=== PATIENT | male | born 1940 | race Caucasian/White ===

== ENCOUNTER 2016-12-25 10:56 | Inpatient (IN) | payer MEDICARE, OTHER ==
[2016-12-25] VITALS (9 sets, daily range): BP systolic 94–114; BP diastolic 53–65; PULSE 52–59; RESP 15–23; TEMP 97.4–98; O2SAT 93–98
[~2016-12-25] VITALS: Ht 185.4 cm; Wt 101.8 kg
[2016-12-25] MEDS ORDERED: ceFAZolin 2 GM PREMIX 50 ML ONE (11:06)
[2016-12-25 11:18] LABS: I-STAT POTASSIUM 4.6 MMOL/L (3.5-4.9)
[2016-12-25 11:20] LABS: AUTOMATED NEUTROPHIL # 5.1 TH/MM3 (1.8-7.7); BASOPHIL # 0.1 TH/MM3 (0-0.2); BASOPHIL % 0.8 % (0.0-2.0); EOSINOPHIL # 0.2 TH/MM3 (0-0.4); EOSINOPHIL % 2.7 % (0.0-4.0); HEMATOCRIT 44.8 % (39.0-51.0); HEMO FLAGS DIFF FINAL; LYMPH % 24.2 % (9.0-44.0); LYMPHOCYTE # 1.9 TH/MM3 (1.0-4.8); MEAN CELL VOLUME 89.5 FL (80.0-100.0); MEAN CORPUSCULAR HEMOGLOBIN 29.6 PG (27.0-34.0); MONO % 6.8 % (0.0-8.0); NEUT % 65.5 % (16.0-70.0); PLATELET COUNT 235 TH/MM3 (150-450); RED CELL DISTRIBUTION WIDTH 13.8 % (11.6-17.2); WHITE BLOOD COUNT 7.8 TH/MM3 (4.0-11.0)
[2016-12-25] MEDS ORDERED: IOHEXOL 350 MG/ML 10 ML VIAL (for RAD DIAG) IVCONTRAST ONE (11:25)
[2016-12-25 11:28] LABS: APTT (PATIENT) 22.6 SEC (24.3-30.1); PROTHROMBIN TIME - PATIENT 10.7 SEC (9.8-11.6)
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
[2016-12-25] MEDS ORDERED: CHLORHEXIDINE GLUCONATE 2 % 1 PACK (2 CLOTHS) TOP PRN (11:45)
[2016-12-25] MEDS ORDERED: HYDROmorphone HCL PF 1 MG/ML VIAL IV PUSH PRN (11:45)
[2016-12-25] MEDS ORDERED: MISCELLANEOUS NURSING INFORMATION XX SCH (11:45)
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
[2016-12-25] MEDS: RESP: ALBUTEROL 2.5 MG/IPRATROPIUM 0.5 MG NEB (SCH) INH ×4 (12:00→23:35)
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
[2016-12-25] MEDS: SODIUM CHLOR 0.9% 1000 ML INJ 1,000 ML IV SCH ×2 (12:32→21:43)
[2016-12-25] MEDS: ACETAMINOPHEN 1000 MG/100 ML VIAL IV SCH ×2 (12:32→18:22)
[2016-12-25] MEDS: METHOCARBAMOL 500 MG TAB PO SCH ×2 (12:32→20:50)
[2016-12-25] MEDS: GABAPENTIN 100 MG CAP PO SCH ×2 (12:32→18:22)
[2016-12-25] MEDS: LIDOCAINE HCL 5% PATCH T-DERMAL SCH (12:32)
[2016-12-25] MEDS: FAMOTIDINE 20 MG/2 ML VIAL IV PUSH SCH ×2 (12:32→20:49)
[2016-12-25] MEDS: HYDROmorphone HCL PF 1 MG/ML VIAL IV PUSH PRN ×2 (12:32→18:22)
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
[2016-12-25 17:16] LABS: BACTERIA, URINE OCC /hpf; BLOOD, URINE LARGE (NEG); COMMENT (UR) CATH-CULTURE IND; CULTURE IF INDICATED CATH CULTURE IND; GLUCOSE,URINE NEG (NEG); KETONE, URINE NEG (NEG); NITRITE,URINE NEG (NEG); SQUAMOUS EPITHELIAL CELL URINE <1 /hpf (0-5); URINE COLOR YELLOW (YELLW/STRAW)
[2016-12-25 17:34] LABS: BICARBONATE 24.7 MEQ/L (21.0-32.0); POTASSIUM 4.6 MEQ/L (3.5-5.1)
[2016-12-25] MEDS: DOCUSATE SODIUM 50 MG/SENNA 8.6 MG TAB PO SCH (20:50)
[2016-12-25] MEDS: REMOVE OLD LIDOCAINE PATCH T-DERMAL SCH (21:00)
[2016-12-25] MEDS: MAGNESIUM HYDROXIDE SUSP 30 ML CUP PO SCH (21:03)
[2016-12-26] VITALS (28 sets, daily range): BP systolic 88–178; BP diastolic 51–74; PULSE 52–86; RESP 17–26; TEMP 97.7–98.9; O2SAT 18–100
[2016-12-26 00:33] LABS: HEMATOCRIT 38.4 % (39.0-51.0); REVIEW FLAG FINAL
[2016-12-26] MEDS: ACETAMINOPHEN 1000 MG/100 ML VIAL IV SCH ×2 (00:55→05:18)
[2016-12-26] MEDS: CHLORHEXIDINE GLUCONATE 2 % 1 PACK (2 CLOTHS) TOP SCH (00:55)
[2016-12-26] MEDS: RESP: ALBUTEROL 2.5 MG/IPRATROPIUM 0.5 MG NEB (SCH) INH ×6 (03:35→23:29)
[2016-12-26 03:48] LABS: AUTOMATED NEUTROPHIL # 6.7 TH/MM3 (1.8-7.7); BASOPHIL % 0.4 % (0.0-2.0); EOSINOPHIL % 0.3 % (0.0-4.0); HEMATOCRIT 35.5 % (39.0-51.0); HEMO FLAGS DIFF FINAL; LYMPH % 16.3 % (9.0-44.0); LYMPHOCYTE # 1.5 TH/MM3 (1.0-4.8); MEAN CELL VOLUME 89.1 FL (80.0-100.0); MEAN CORPUSCULAR HEMOGLOBIN 29.8 PG (27.0-34.0); MEAN CORPUSCULAR HGB CONC 33.5 % (32.0-36.0); MONO % 10.7 % (0.0-8.0); NEUT % 72.3 % (16.0-70.0); PLATELET COUNT 180 TH/MM3 (150-450); RED BLOOD COUNT 3.98 MIL/MM3 (4.50-5.90); RED CELL DISTRIBUTION WIDTH 13.9 % (11.6-17.2); WHITE BLOOD COUNT 9.3 TH/MM3 (4.0-11.0)
[2016-12-26 03:58] LABS: PROTHROMBIN TIME - PATIENT 11.1 SEC (9.8-11.6)
[2016-12-26 04:28] LABS: BICARBONATE 26.5 MEQ/L (21.0-32.0); POTASSIUM 4.4 MEQ/L (3.5-5.1)
[2016-12-26] MEDS: METHOCARBAMOL 500 MG TAB PO SCH ×3 (05:18→20:31)
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
[2016-12-26] MEDS: SODIUM CHLOR 0.9% 1000 ML INJ 1,000 ML IV SCH ×2 (07:55→16:55)
[2016-12-26] MEDS: LACTULOSE SYRUP 20 GM/30 ML CUP PO SCH (09:00)
[2016-12-26] MEDS ORDERED: SODIUM CHLORID 0.9% 500 ML INJ 500 ML IV ONE (09:45)
[2016-12-26] MEDS ORDERED: INFLUENZA VIRUS VACCINE (QUADRIVALENT) 0.5 ML SYR IM ONE (10:00)
[2016-12-26] MEDS ORDERED: SODIUM CHLOR 0.9% 1000 ML INJ 1,000 ML IV ONE ×2 (10:00→11:15)
[2016-12-26] MEDS: LIDOCAINE HCL 5% PATCH T-DERMAL SCH (10:05)
[2016-12-26] MEDS: ONDANSETRON HCL 4 MG/2 ML VIAL IV PUSH PRN (10:09)
[2016-12-26] MEDS: FAMOTIDINE 20 MG/2 ML VIAL IV PUSH SCH ×2 (10:09→20:32)
[2016-12-26] MEDS: GABAPENTIN 100 MG CAP PO SCH ×3 (10:10→17:32)
[2016-12-26] MEDS: DOCUSATE SODIUM 50 MG/SENNA 8.6 MG TAB PO SCH ×2 (10:10→20:31)
--- NOTE | 2016-12-26 10:17 | EKG ---
Date Performed: 12/26/2016 Time Performed: 03:30:28 PTAGE: 76 years EKG: Sinus bradycardia with 1st degree A-V block Inferior T wave changes are nonspecific Abnorma l ECG NO PREVIOUS TRACING DOCTOR: Brannon Watson Interpretating Date/Time 12/26/2016 10:12:44
--- NOTE | 2016-12-26 10:20 | MR ---
cc: BARRIE TOVAR MD DATE 12/25/2016 PREOPERATIVE DIAGNOSIS Laceration left hand with laceration of the extensor mechanism little finger MP joint. POSTOPERATIVE DIAGNOSIS Laceration left hand with laceration extensor mechanism MP joint little finger. PROCEDURE Exploration, wash and repair of the extensor mechanism MP joint and repair of laceration left hand. SURGEON Dr. Tovar ANESTHESIA Local ESTIMATED BLOOD LOSS Minimal This was a bedside procedure. No tourniquet was used. PROCEDURE After explaining the risks and benefits of the procedure and obtaining consent, the left hand was thoroughly prepped and draped. Skin flaps were elevated and thorough wash was given using normal saline. The foreign body within the region was removed. The patient had a laceration between the extensor digitorum communis and extensor digiti minimi over the MP joint with no evidence of exposed MP joint. There was evidence of subluxation of the EDC tendon to the ulnar groove. A thorough wash was given. The extensor mechanism was approximated between the EDC and EDM tendon with multiple Ethibond stitches. Skin flaps were then approximated using 5-0 nylon in a horizontal mattress interrupted fashion. Xeroform and bacitracin dressing applied. A bulky hand dressing was applied which was held in place by Wilfrid. The patient tolerated the procedure well. We will keep the part elevated. We continue the antibiotics and hand surgery will follow up. Barrie Tovar MD SE/BJORN /10:34 PM /10:05 AM SHYAM
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
[2016-12-26 11:03] LABS: HEMATOCRIT 27.9 % (39.0-51.0); REVIEW FLAG FINAL
[2016-12-26] MEDS ORDERED: SODIUM CHLOR 0.9% 250 ML INJ 250 ML IV ONE (11:15)
[2016-12-26] MEDS ORDERED: FUROSEMIDE 20 MG/2 ML VIAL IV PUSH ONE (12:00)
[2016-12-26] MEDS ORDERED: PROPOFOL 200 MG/20 ML AMP IV ONE (12:00)
[2016-12-26] MEDS ORDERED: PHENYLEPH/NS 1000 MCG/10 ML SYR IV ONE (12:00)
[2016-12-26] MEDS ORDERED: ROCURONIUM INJ 50 MG/5 ML SYRINGE IV PUSH ONE (12:00)
[2016-12-26] MEDS ORDERED: VECURONIUM BROMIDE 20 MG VIAL IV ONE (12:00)
[2016-12-26] MEDS ORDERED: LACTATED RINGER'S 1000 ML INJ 4,000 ML IV ONE (12:00)
[2016-12-26] MEDS ORDERED: NORMOSOL R INJ 2,000 ML IV ONE (12:00)
[2016-12-26] MEDS ORDERED: LIDOCAINE HCL 1% PF 5 ML AMPULE OTHER ONE (12:00)
[2016-12-26] MEDS ORDERED: ePHEDrine/NS 25 MG/5 ML SYR IV ONE (12:00)
[2016-12-26] MEDS ORDERED: HEPARIN - 10,000 UNITS/ML IV ADDITIVE OTHER ONE (12:00)
[2016-12-26] MEDS ORDERED: MIDAZOLAM HCL 2 MG/2 ML VIAL IV ONE (12:00)
[2016-12-26] MEDS ORDERED: ceFAZolin 2 GM PREMIX 50 ML ONE (13:26)
[2016-12-26 14:15] LABS: BLOOD GAS BASE EXCESS -6.4 mmol/L (-2-2); BLOOD GAS CARBOXYHEMOGLOBIN 1.7 % (0-4); BLOOD GAS HCO3 20 mmol/L (22-26); BLOOD GAS METHEMOGLOBIN 1.2 % (0-2); BLOOD GAS O2 HGB SATURATION 96 % (90-100); BLOOD GAS OXYGEN CONTENT 14.8 Vol % (12.0-20.0); BLOOD GAS PCO2 45 mmHg (38-42); BLOOD GAS PO2 167 mmHg (61-120); BLOOD GAS TOTAL HGB 10.7 G/DL (12.0-16.0); CRITICAL VALUE YES; TEMP CORR TO 98.6
[2016-12-26 14:16] LABS: OXYGEN DEVICE OR VENT; STAT YES
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
[2016-12-26] MEDS ORDERED: fentaNYL DRIP 250 ML IV PRN (16:30)
[2016-12-26] MEDS ORDERED: PROPOFOL 1000 MG/100 ML INJ 100 ML IV PRN (16:30)
--- NOTE | 2016-12-26 16:46 | RADRPT ---
EXAM DATE/TIME: 12/26/2016 16:19 [facility] COMPARISON: ABDOMEN SINGLE VIEW, December 26, 2016, 15:28. INDICATIONS : Shortness of breath. MEDICAL HISTORY : None. SURGICAL HISTORY : None. ENCOUNTER: Subsequent ACUITY: 1 day PAIN SCORE: Non-responsive. LOCATION: chest FINDINGS: The heart is enlarged. There is minimal left basilar effusion. There is subcutaneous emphysema along the left chest wall. No pneumothorax is evident. The ET tube is in satisfactory position. There are chronic interstitial changes of the pulmonary parenchyma. The bony structures demonstrate previous plating of the right clavicle. CONCLUSION: 1. ET tube in satisfactory position. 2. The venous emphysema along the left chest wall. 3. Cardiomegaly and chronic appearing interstitial changes Eladio Allen MD on December 26, 2016 at 16:44 Board Certified Radiologist. This report was verified electronically.
[2016-12-26 17:02] LABS: BLOOD GAS BASE EXCESS -2.4 mmol/L (-2-2); BLOOD GAS CARBOXYHEMOGLOBIN 1.4 % (0-4); BLOOD GAS HCO3 24 mmol/L (22-26); BLOOD GAS O2 HGB SATURATION 97 % (90-100); BLOOD GAS OXYGEN CONTENT 14.7 Vol % (12.0-20.0); BLOOD GAS PCO2 55 mmHg (38-42); BLOOD GAS PO2 256 mmHg (61-120); BLOOD GAS TOTAL HGB 10.3 G/DL (12.0-16.0); TEMP CORR TO 98.6
[2016-12-26 17:03] LABS: CRITICAL VALUE YES; DRAW SITE ALINE; FIO2 90 %; OXYGEN DEVICE VENT; STAT YES
[2016-12-26] MEDS ORDERED: POTASSIUM CHLOR 20 MEQ PREMIX 100 ML IV PRN ×2 (17:15)
[2016-12-26] MEDS ORDERED: POTASSIUM CHLOR 40 MEQ PREMIX 100 ML IV PRN (17:15)
[2016-12-26] MEDS ORDERED: MAGNESIUM SULFATE INJ 4 GM in SODIUM CHLORIDE 0.9% INJ 92 ML IV PRN (17:15)
[2016-12-26] MEDS ORDERED: MAGNESIUM SULFATE INJ 2 GM in SODIUM CHLORIDE 0.9% INJ 96 ML IV PRN (17:15)
[2016-12-26] MEDS ORDERED: MAGNESIUM OXIDE 400 MG TAB PO PRN (17:15)
[2016-12-26] MEDS ORDERED: POTASSIUM PHOSPHATE MONOBASIC 500 MG TAB PO PRN (17:15)
[2016-12-26] MEDS ORDERED: POTASSIUM PHOSPHATE INJ 30 MMOL in SODIUM CHLOR 0.9% 250 ML INJ 250 ML IV PRN (17:15)
[2016-12-26] MEDS ORDERED: POTASSIUM PHOSPHATE MONOBASIC 500 MG TAB PO/TUBE PRN (17:15)
[2016-12-26] MEDS ORDERED: POTASSIUM CHLORIDE 25 MEQ EFFERVESCENT TAB PO PRN (17:15)
[2016-12-26] MEDS ORDERED: SODIUM PHOSPHATE INJ 30 MMOL in SODIUM CHLOR 0.9% 250 ML INJ 240 ML IV PRN (17:15)
[2016-12-26 18:01] LABS: AUTOMATED NEUTROPHIL # 4.8 TH/MM3 (1.8-7.7); BASOPHIL % 0.3 % (0.0-2.0); EOSINOPHIL % 0.2 % (0.0-4.0); HEMATOCRIT 30.6 % (39.0-51.0); HEMO FLAGS DIFF FINAL; LYMPH % 17.7 % (9.0-44.0); LYMPHOCYTE # 1.2 TH/MM3 (1.0-4.8); MEAN CELL VOLUME 87.9 FL (80.0-100.0); MEAN CORPUSCULAR HEMOGLOBIN 30.1 PG (27.0-34.0); MEAN CORPUSCULAR HGB CONC 34.2 % (32.0-36.0); MONO % 9.9 % (0.0-8.0); NEUT % 71.9 % (16.0-70.0); PLATELET COUNT 159 TH/MM3 (150-450); RED BLOOD COUNT 3.48 MIL/MM3 (4.50-5.90); RED CELL DISTRIBUTION WIDTH 14.3 % (11.6-17.2); WHITE BLOOD COUNT 6.6 TH/MM3 (4.0-11.0)
[2016-12-26 18:24] LABS: BICARBONATE 24.4 MEQ/L (21.0-32.0); POTASSIUM 4.5 MEQ/L (3.5-5.1)
[2016-12-26 18:47] LABS: CALCIUM-PROTEIN CORRECTED 7.8 MG/DL (8.5-10.1)
[2016-12-26 18:55] LABS: BLOOD GAS BASE EXCESS -2.9 mmol/L (-2-2); BLOOD GAS CARBOXYHEMOGLOBIN 1.5 % (0-4); BLOOD GAS HCO3 22 mmol/L (22-26); BLOOD GAS METHEMOGLOBIN 1.1 % (0-2); BLOOD GAS O2 HGB SATURATION 94 % (90-100); BLOOD GAS OXYGEN CONTENT 14.5 Vol % (12.0-20.0); BLOOD GAS PCO2 44 mmHg (38-42); BLOOD GAS PO2 90 mmHg (61-120); BLOOD GAS TOTAL HGB 10.9 G/DL (12.0-16.0); CRITICAL VALUE NO; OXYGEN DEVICE VENT; TEMP CORR TO 98.6
[2016-12-26 18:56] LABS: DRAW SITE ALINE; FIO2 50 %; STAT NO
--- NOTE | 2016-12-26 19:04 | PD.OP ---
Operative Report Splenic injury,hypotension Postoperative Diagnosis: Splenic injury,hypotension Procedure: Insertion of left femoral CVP line Anesthesia: none Surgeon: Danielle Muñiz Business Reporter(s): none Operation and Findings: 76 y.o patient with splenic injury,patient became hypotensive,he has poor access -proceeded with insertion of a left femoral TLC. Patient's left groin area was sterilely prepped and draped.Using the femoral artery as landmark-the femoral vein was easily cannulated.A 20cm long TLC was inserted,there is good blood return and flush.All port were flushed with NS.Line secured to skin with 0 silk. Danielle Muñiz MD Dec 26, 2016 19:04
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
[2016-12-26] MEDS ORDERED: CHLORHEXIDINE 0.12% (ORAL KIT) 15 ML CUP MT SCH (20:00)
[2016-12-26] MEDS: REMOVE OLD LIDOCAINE PATCH T-DERMAL SCH (20:32)
[2016-12-26] MEDS: MAGNESIUM HYDROXIDE SUSP 30 ML CUP PO SCH (20:32)
[2016-12-26] MEDS: CHLORHEXIDINE 0.12% (ORAL KIT) 15 ML CUP MT SCH (20:33)
[2016-12-26] MEDS: PROPOFOL 1000 MG/100 ML INJ 100 ML IV PRN (21:17)
[2016-12-26] MEDS ORDERED: DO NOT ADM ANY ANTICOAGULANT DRUGS PRN (22:00)
[2016-12-27] VITALS (19 sets, daily range): BP systolic 103–139; BP diastolic 48–55; PULSE 50–97; RESP 18; TEMP 98.5–99.7; O2SAT 91–99
[2016-12-27 00:46] LABS: HEMATOCRIT 28.6 % (39.0-51.0); REVIEW FLAG FINAL
[2016-12-27] MEDS: PROPOFOL 1000 MG/100 ML INJ 100 ML IV PRN ×5 (01:56→20:44)
[2016-12-27] MEDS: CHLORHEXIDINE GLUCONATE 2 % 1 PACK (2 CLOTHS) TOP SCH (02:59)
[2016-12-27] MEDS: SODIUM CHLOR 0.9% 1000 ML INJ 1,000 ML IV SCH ×3 (03:43→18:29)
[2016-12-27] MEDS: RESP: ALBUTEROL 2.5 MG/IPRATROPIUM 0.5 MG NEB (SCH) INH ×6 (03:54→23:30)
[2016-12-27 05:10] LABS: AUTOMATED NEUTROPHIL # 6.8 TH/MM3 (1.8-7.7); BASOPHIL % 0.5 % (0.0-2.0); EOSINOPHIL # 0.2 TH/MM3 (0-0.4); HEMATOCRIT 27.7 % (39.0-51.0); HEMO FLAGS DIFF FINAL; LYMPH % 15.9 % (9.0-44.0); LYMPHOCYTE # 1.5 TH/MM3 (1.0-4.8); MEAN CELL VOLUME 86.4 FL (80.0-100.0); MEAN CORPUSCULAR HGB CONC 34.8 % (32.0-36.0); MONO % 10.9 % (0.0-8.0); NEUT % 70.7 % (16.0-70.0); PLATELET COUNT 161 TH/MM3 (150-450); RED BLOOD COUNT 3.21 MIL/MM3 (4.50-5.90); RED CELL DISTRIBUTION WIDTH 15.1 % (11.6-17.2); WHITE BLOOD COUNT 9.6 TH/MM3 (4.0-11.0)
[2016-12-27] MEDS: METHOCARBAMOL 500 MG TAB PO SCH ×3 (05:10→20:48)
--- NOTE | 2016-12-27 05:31 | RADRPT ---
EXAM DATE/TIME: 12/27/2016 03:36 [facility] COMPARISON: CHEST SINGLE AP, December 26, 2016, 16:19. INDICATIONS : Follow up rib fracture. MEDICAL HISTORY : Splenic, Rib Fx SURGICAL HISTORY : Shoulder surgery. ENCOUNTER: Subsequent ACUITY: 3 days PAIN SCORE: Non-responsive. LOCATION: Bilateral chest FINDINGS: A single view of the chest demonstrates endotracheal tube in good position. Nasogastric tube tip in s tomach with side-port in distal esophagus. Basilar airspace disease, left greater than right. Multipl e left-sided rib fractures with and subcutaneous tissues of the left chest wall. No significant pneum othorax identified. CONCLUSION: 1. Multiple left-sided rib fractures and air in the subcutaneous tissues. No definite pneumothorax. B asilar airspace disease, left greater than right. Noel Bethea MD on December 27, 2016 at 5:27 Board Certified Radiologist. This report was verified electronically.
[2016-12-27 06:07] LABS: CALCIUM-PROTEIN CORRECTED 7.8 MG/DL (8.5-10.1); POTASSIUM 4.4 MEQ/L (3.5-5.1); TOTAL BILIRUBIN ADULT 0.6 MG/DL (0.2-1.0)
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
[2016-12-27] MEDS: CHLORHEXIDINE 0.12% (ORAL KIT) 15 ML CUP MT SCH ×2 (08:00→21:09)
[2016-12-27] MEDS ORDERED: BUMETANIDE INJ 1 MG/4 ML VIAL IV PUSH ONE (08:00)
[2016-12-27] MEDS: DOCUSATE SODIUM 50 MG/SENNA 8.6 MG TAB PO SCH ×2 (08:36→20:48)
[2016-12-27] MEDS: LACTULOSE SYRUP 20 GM/30 ML CUP PO SCH (08:36)
[2016-12-27] MEDS: GABAPENTIN 100 MG CAP PO SCH ×3 (08:36→17:10)
[2016-12-27] MEDS: FAMOTIDINE 20 MG/2 ML VIAL IV PUSH SCH ×2 (08:36→20:48)
[2016-12-27] MEDS: LIDOCAINE HCL 5% PATCH T-DERMAL SCH (08:37)
[2016-12-27] MEDS ORDERED: ALBUMIN HUMAN 25% 25 GM/100 ML BAGP IV ONE (09:00)
[2016-12-27] MEDS ORDERED: TERBUTALINE INJ 1 MG/ML AMP SQ PRN (09:15)
[2016-12-27] MEDS: NOREPINEPHRINE-DEXTROSE DRIP 250 ML IV PRN (09:29)
[2016-12-27] MEDS: fentaNYL DRIP 250 ML IV PRN (09:45)
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
[2016-12-27 12:53] LABS: HEMATOCRIT 27.2 % (39.0-51.0); REVIEW FLAG FINAL
--- NOTE | 2016-12-27 13:07 | RADRPT ---
EXAM DATE/TIME: 12/27/2016 12:26 [facility] COMPARISON: CHEST SINGLE AP, December 27, 2016, 3:36. INDICATIONS : Left sided central line placement. MEDICAL HISTORY : Splenic, Rib Fx SURGICAL HISTORY : Shoulder surgery. ENCOUNTER: Subsequent ACUITY: 3 days PAIN SCORE: Non-responsive. LOCATION: Bilateral chest FINDINGS: Stable ETT. Interval slight retraction of the NGT with tip in the very proximal stomach. Interval temo cement of left subclavian central line with tip in the very proximal SVC. No significant pneumothorax . However, there is continued subcutaneous emphysema in the left subcutaneous soft tissues. Interval right upper lobe parenchymal opacity which may reflect atelectasis or pulmonary contusion. Cardiomedi astinal contours are stable. Multiple displaced left-sided rib fractures again noted. Remainder of th e exam is unchanged. CONCLUSION: 1. Slight interval retraction of nasogastric catheter with tip in the very proximal stomach. 2. Left subclavian central line catheter tip in the very proximal SVC with out significant pneumothor ax. However, there is stable left chest wall subcutaneous emphysema. 3. Interval right upper lobe parenchymal opacity which may reflect atelectasis or pulmonary contusion . Rohan Dorantes MD on December 27, 2016 at 13:03 Board Certified Radiologist. This report was verified electronically.
--- NOTE | 2016-12-27 16:39 | HHI.PR ---
Subjective Remarks left hand laceration repair follow up patient remains intubated and on pressors Objective Vital Signs Date Time Temp Pulse Resp B/P (MAP) Pulse Ox O2 Delivery O2 Flow Rate FiO2 12/27/16 16:00 99.0 50 18 123/48 (73) 96 12/27/16 16:00 50 12/27/16 16:00 82 12/27/16 15:11 84 138/54 12/27/16 14:45 85 120/52 12/27/16 14:21 84 100/39 12/27/16 14:00 87 12/27/16 12:05 93 60 12/27/16 12:00 60 12/27/16 12:00 99.0 94 18 103/52 (69) 96 12/27/16 12:00 94 12/27/16 11:15 113 80/53 12/27/16 11:00 85 97/45 12/27/16 10:00 78 12/27/16 09:41 74 97/41 12/27/16 09:29 86 92/42 12/27/16 08:30 90 60 12/27/16 08:04 91 50 12/27/16 08:00 99.7 93 18 105/53 (70) 99 12/27/16 08:00 92 12/27/16 08:00 60 12/27/16 07:00 93 Mechanical Ventilator 50 12/27/16 06:00 84 12/27/16 04:00 98.9 72 18 126/48 (74) 93 12/27/16 04:00 50 12/27/16 04:00 72 12/27/16 03:54 94 50 12/27/16 02:00 74 12/27/16 01:31 95 50 12/27/16 00:00 50 12/27/16 00:00 76 12/27/16 00:00 98.5 76 18 139/55 (83) 95 12/26/16 22:57 98.5 80 18 155/62 98 12/26/16 22:42 98.5 78 18 147/56 98 12/26/16 22:04 98.5 77 18 150/59 98 12/26/16 22:02 98 50 12/26/16 22:00 75 12/26/16 21:47 98.5 75 18 135/56 98 12/26/16 20:00 98.5 84 23 122/62 (82) 95 12/26/16 20:00 84 12/26/16 19:49 98 50 12/26/16 19:00 98 Mechanical Ventilator 50 12/26/16 19:00 98.2 86 18 178/74 98 12/26/16 18:49 97.9 84 18 154/68 98 12/26/16 18:28 97.7 82 18 153/62 100 12/26/16 18:09 97.8 81 18 131/57 95 12/26/16 18:00 83 12/26/16 17:38 97 50 I/O 12/26/16 12/26/16 12/26/16 12/27/16 12/27/16 12/27/16 07:00 15:00 23:00 07:00 15:00 23:00 Intake Total 1667 ml 4091 ml 3539 ml 2658 ml 1100 ml 100 ml Output Total 400 ml 2500 ml 320 ml 715 ml 75 ml Balance 1267 ml 4091 ml 1039 ml 2338 ml 385 ml 25 ml Intake Oral 480 ml 0 ml IV Total 1187 ml 2887 ml 150 ml 2188 ml 1100 ml 100 ml Packed Cells 1200 ml 400 ml FFP 329 ml 370 ml Platelets 242 ml Blood Product IV Normal Saline Flush 4 ml 18 ml 100 ml Other 2400 ml Output Urine Total 400 ml 850 ml 300 ml 715 ml 75 ml Gastric Drainage Total 0 ml 0 ml Drainage Total 50 ml 20 ml Estimated Blood Loss 1600 ml # Bowel Movements 0 0 0 examination of left hand: dressing in place laceration clean and dry with sutures in place minimal swelling noted no drainage Result Diagram: 12/27/16 1115 12/27/16 0450 Assessment and Plan Assessment and Plan 76 year old male s/p repair of laceration and extensor mechanism left little finger and hand Plan: dressing changed keep the part elevated hand surgery will follow Barrie Turpin MD Dec 27, 2016 16:39
[2016-12-27] MEDS: MAGNESIUM HYDROXIDE SUSP 30 ML CUP PO SCH (20:48)
[2016-12-27] MEDS: REMOVE OLD LIDOCAINE PATCH T-DERMAL SCH (20:48)
[2016-12-28] VITALS (20 sets, daily range): BP systolic 92–151; BP diastolic 38–56; PULSE 70–116; RESP 18–20; TEMP 98.2–102.8; O2SAT 89–99
[2016-12-28] MEDS: PROPOFOL 1000 MG/100 ML INJ 100 ML IV PRN ×5 (02:10→22:50)
[2016-12-28] MEDS: fentaNYL DRIP 250 ML IV PRN ×2 (02:31→22:03)
[2016-12-28] MEDS: NOREPINEPHRINE-DEXTROSE DRIP 250 ML IV PRN ×2 (03:35→22:00)
[2016-12-28] MEDS: CHLORHEXIDINE GLUCONATE 2 % 1 PACK (2 CLOTHS) TOP SCH (04:00)
[2016-12-28] MEDS: RESP: ALBUTEROL 2.5 MG/IPRATROPIUM 0.5 MG NEB (SCH) INH ×6 (04:06→23:18)
[2016-12-28 04:39] LABS: AUTOMATED NEUTROPHIL # 9.9 TH/MM3 (1.8-7.7); BASOPHIL # 0.1 TH/MM3 (0-0.2); BASOPHIL % 0.6 % (0.0-2.0); EOSINOPHIL # 0.2 TH/MM3 (0-0.4); EOSINOPHIL % 1.4 % (0.0-4.0); HEMATOCRIT 24.9 % (39.0-51.0); HEMO FLAGS DIFF FINAL; LYMPH % 8.6 % (9.0-44.0); LYMPHOCYTE # 1.1 TH/MM3 (1.0-4.8); MEAN CELL VOLUME 87.5 FL (80.0-100.0); MEAN CORPUSCULAR HEMOGLOBIN 30.1 PG (27.0-34.0); MEAN CORPUSCULAR HGB CONC 34.4 % (32.0-36.0); MONO % 9.1 % (0.0-8.0); NEUT % 80.3 % (16.0-70.0); PLATELET COUNT 169 TH/MM3 (150-450); RED BLOOD COUNT 2.85 MIL/MM3 (4.50-5.90); WHITE BLOOD COUNT 12.4 TH/MM3 (4.0-11.0)
[2016-12-28 05:02] LABS: BICARBONATE 26.3 MEQ/L (21.0-32.0); CALCIUM-PROTEIN CORRECTED 8.2 MG/DL (8.5-10.1); MAGNESIUM 2.4 MG/DL (1.5-2.5); POTASSIUM 4.2 MEQ/L (3.5-5.1); TOTAL BILIRUBIN ADULT 0.5 MG/DL (0.2-1.0)
[2016-12-28] MEDS: METHOCARBAMOL 500 MG TAB PO SCH ×3 (05:21→22:00)
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
[2016-12-28] MEDS ORDERED: BUMETANIDE INJ 1 MG/4 ML VIAL IV PUSH ONE (07:30)
[2016-12-28] MEDS ORDERED: ALBUMIN HUMAN 25% 25 GM/100 ML BAGP IV ONE (07:30)
[2016-12-28] MEDS: CHLORHEXIDINE 0.12% (ORAL KIT) 15 ML CUP MT SCH ×2 (08:00→20:21)
[2016-12-28] MEDS ORDERED: ROCURONIUM INJ 50 MG/5 ML VIAL ONE (08:24)
--- NOTE | 2016-12-28 09:00 | PD.PROCEDR ---
Procedure Note Procedure Indication: Inability to ventilate due to cuff damage Sedated with propofol and fentanyl infusions, neuromuscular paralysis with rocuronium INTUBATION: The patient was put in optimal position for the procedure. I attempted to exchange the tube over a bougie but was unable to pass the bougie, into the bronchial tree. Patient was extubated and reintubated with a 8.0 cuffed endotracheal tube. DL Mac $ blade Grade 2 view, single attempt Tube placement was confirmed by visualization of the tube and balloon passing through the cords, capnometry and subsequent chest x-ray. Breath sounds were equal and well aerated bilaterally postintubation. No breath sounds over stomach. Patient tolerated procedure well. Lester Arauz MD Dec 28, 2016 09:00
[2016-12-28] MEDS: FAMOTIDINE 20 MG/2 ML VIAL IV PUSH SCH ×2 (09:11→20:22)
[2016-12-28] MEDS: LACTULOSE SYRUP 20 GM/30 ML CUP PO SCH (09:11)
[2016-12-28] MEDS: DOCUSATE SODIUM 50 MG/SENNA 8.6 MG TAB PO SCH ×2 (09:11→20:22)
[2016-12-28] MEDS: GABAPENTIN 100 MG CAP PO SCH ×3 (09:11→17:12)
[2016-12-28] MEDS: LIDOCAINE HCL 5% PATCH T-DERMAL SCH (09:11)
[2016-12-28] MEDS ORDERED: ROCURONIUM INJ 50 MG/5 ML VIAL IV ONE (09:15)
[2016-12-28] MEDS ORDERED: hydrALAZINE HCL 20 MG/ML VIAL IV PUSH PRN (09:30)
--- NOTE | 2016-12-28 09:53 | RADRPT ---
EXAM DATE/TIME: 12/28/2016 09:18 [facility] COMPARISON: CHEST SINGLE AP, December 27, 2016, 12:26. CT THORAX W CONTRAST, December 25, 2016, 11:18. CHEST SINGLE AP, December 28, 2016, 3:21. INDICATIONS : ET tube exchange. MEDICAL HISTORY : Rib fractures. SURGICAL HISTORY : None. ENCOUNTER: Initial ACUITY: 1 day PAIN SCORE: Non-responsive. LOCATION: Bilateral chest FINDINGS: There is an endotracheal tube seen with the tip at the level of the clavicles. There is NG tube in ex tending beyond the imaged portion of the film. Surgical plate and screws traversing the right clavicl e. The surgical plate appears fractured but nondisplaced. There are left-sided rib fractures noted. N o visualized left-sided pneumothorax. There is stable left basilar airspace atelectasis. Hazy opacity identified within the lungs bilateral ly which is slightly progressed as compared to the prior exam. This may reflect pulmonary contusion g iven the history of trauma versus edema. CONCLUSION: Probably positioned endotracheal tube. Stable appearance of left-sided rib fractures. Increasing hazy opacity of the lungs bilaterally which is progressed as compared to the prior exam. This may reflect progressive pulmonary contusions given the history of trauma versus fluid or possible basilar atelec tasis. Ambreen Tamayo MD on December 28, 2016 at 9:47 Board Certified Radiologist. This report was verified electronically.
[2016-12-28] MEDS: METOPROLOL TARTRATE 5 MG/5 ML VIAL IV PUSH SCH ×3 (10:40→22:00)
[2016-12-28] MEDS ORDERED: FUROSEMIDE 40 MG/4 ML VIAL IV PUSH ONE (11:15)
[2016-12-28] MEDS: PIPERACIL-TAZO 4.5 GM PREMIX 100 ML IV SCH ×2 (11:24→17:13)
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
[2016-12-28] MEDS: ACETAMINOPHEN 325 MG TAB PO PRN (14:36)
[2016-12-28] MEDS: REMOVE OLD LIDOCAINE PATCH T-DERMAL SCH (20:22)
[2016-12-28] MEDS: MAGNESIUM HYDROXIDE SUSP 30 ML CUP PO SCH (20:22)
[2016-12-29] VITALS (17 sets, daily range): BP systolic 121–160; BP diastolic 44–56; PULSE 66–84; RESP 18; TEMP 98.7–100.1; O2SAT 96–100
[2016-12-29] MEDS: PIPERACIL-TAZO 4.5 GM PREMIX 100 ML IV SCH ×4 (00:32→17:07)
[2016-12-29] MEDS: RESP: ALBUTEROL 2.5 MG/IPRATROPIUM 0.5 MG NEB (SCH) INH ×2 (03:03→08:17)
[2016-12-29] MEDS: CHLORHEXIDINE GLUCONATE 2 % 1 PACK (2 CLOTHS) TOP SCH (03:45)
[2016-12-29] MEDS: METOPROLOL TARTRATE 5 MG/5 ML VIAL IV PUSH SCH ×4 (03:45→19:58)
[2016-12-29] MEDS: NOREPINEPHRINE-DEXTROSE DRIP 250 ML IV PRN ×2 (03:47→18:41)
[2016-12-29 04:28] LABS: AUTOMATED NEUTROPHIL # 8.7 TH/MM3 (1.8-7.7); BASOPHIL % 0.3 % (0.0-2.0); EOSINOPHIL # 0.6 TH/MM3 (0-0.4); EOSINOPHIL % 5.2 % (0.0-4.0); HEMATOCRIT 23.2 % (39.0-51.0); HEMO FLAGS DIFF FINAL; LYMPH % 10.3 % (9.0-44.0); LYMPHOCYTE # 1.2 TH/MM3 (1.0-4.8); MEAN CELL VOLUME 88.1 FL (80.0-100.0); MEAN CORPUSCULAR HEMOGLOBIN 29.8 PG (27.0-34.0); MEAN CORPUSCULAR HGB CONC 33.9 % (32.0-36.0); MONO % 8.9 % (0.0-8.0); NEUT % 75.3 % (16.0-70.0); PLATELET COUNT 204 TH/MM3 (150-450); RED BLOOD COUNT 2.64 MIL/MM3 (4.50-5.90); RED CELL DISTRIBUTION WIDTH 14.6 % (11.6-17.2); WHITE BLOOD COUNT 11.5 TH/MM3 (4.0-11.0)
[2016-12-29 04:29] LABS: ALT (GPT) 16 U/L (12-78); ANION GAP 6 MEQ/L (5-15); AST (GOT) 21 U/L (15-37); BICARBONATE 29.1 MEQ/L (21.0-32.0); BLOOD UREA NITROGEN 27 MG/DL (7-18); CHLORIDE 106 MEQ/L (98-107); GLOMERULAR FILTRATION RATE 59 ML/MIN (>89); POTASSIUM 3.8 MEQ/L (3.5-5.1); SODIUM (NA) 141 MEQ/L (136-145)
[2016-12-29 04:32] LABS: ALKALINE PHOSPHATASE 54 U/L (45-117); TOTAL BILIRUBIN ADULT 1.2 MG/DL (0.2-1.0)
[2016-12-29 05:32] LABS: BLOOD GAS BASE EXCESS 1.7 mmol/L (-2-2); BLOOD GAS CARBOXYHEMOGLOBIN 1.2 % (0-4); BLOOD GAS HCO3 26 mmol/L (22-26); BLOOD GAS METHEMOGLOBIN 0.7 % (0-2); BLOOD GAS O2 HGB SATURATION 96 % (90-100); BLOOD GAS OXYGEN CONTENT 11.3 Vol % (12.0-20.0); BLOOD GAS PCO2 41 mmHg (38-42); BLOOD GAS PO2 85 mmHG (61-120); BLOOD GAS TOTAL HGB 8.3 G/DL (12.0-16.0); CRITICAL VALUE NO; FIO2 70 %; OXYGEN DEVICE VENTILATOR; TEMP CORR TO 98.6; VENT SETTINGS PRVC18/650/1.0/+5
[2016-12-29 05:33] LABS: DRAW SITE ALINE; STAT NO; ULNAR PULSE PRESENT
[2016-12-29] MEDS: PROPOFOL 1000 MG/100 ML INJ 100 ML IV PRN ×4 (05:35→18:41)
[2016-12-29] MEDS: METHOCARBAMOL 500 MG TAB PO SCH ×4 (05:35→21:15)
--- NOTE | 2016-12-29 06:22 | RADRPT ---
EXAM DATE/TIME: 12/29/2016 04:51 [facility] COMPARISON: CHEST SINGLE AP, December 28, 2016, 9:18. INDICATIONS : Short of breath. MEDICAL HISTORY : Splenic, rib fractures. SURGICAL HISTORY : None. ENCOUNTER: Subsequent ACUITY: 4 - 6 days PAIN SCORE: 0/10 LOCATION: Bilateral chest FINDINGS: Mild bibasilar infiltrate again noted, not significantly changed. Small pleural effusion is seen on t he left, also stable. No pneumothorax radiograph heart size stable, within normal limits. Endotracheal tube tip is approximately 3.5 cm above the cade. There is a nasogastric tube coursing into the stomach. Left subclavian central venous catheter again seen, tip in the superior vena cava. Left rib fractures are again noted. CONCLUSION: No significant change. Davonte Grover MD on December 29, 2016 at 6:19 Board Certified Radiologist. This report was verified electronically.
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
[2016-12-29] MEDS: CHLORHEXIDINE 0.12% (ORAL KIT) 15 ML CUP MT SCH ×2 (08:25→20:07)
[2016-12-29] MEDS: DOCUSATE SODIUM 50 MG/SENNA 8.6 MG TAB PO SCH ×4 (09:00→21:15)
[2016-12-29] MEDS: GABAPENTIN 100 MG CAP PO SCH ×4 (09:00→17:03)
[2016-12-29] MEDS: LACTULOSE SYRUP 20 GM/30 ML CUP PO SCH (09:12)
[2016-12-29] MEDS: LIDOCAINE HCL 5% PATCH T-DERMAL SCH (09:12)
[2016-12-29] MEDS: FAMOTIDINE 20 MG/2 ML VIAL IV PUSH SCH ×2 (09:13→20:07)
[2016-12-29] MEDS: FUROSEMIDE 20 MG/2 ML VIAL IV PUSH SCH (09:13)
[2016-12-29] MEDS ORDERED: ALBUMIN HUMAN 25% 25 GM/100 ML BAGP IV ONE (09:30)
[2016-12-29] MEDS ORDERED: BUMETANIDE INJ 1 MG/4 ML VIAL IV PUSH ONE (09:30)
[2016-12-29] MEDS ORDERED: POTASSIUM CHLOR 20 MEQ PREMIX 100 ML IV ONE (09:30)
[2016-12-29] MEDS ORDERED: FUROSEMIDE 20 MG/2 ML VIAL IV PUSH ONE (09:45)
[2016-12-29] MEDS: fentaNYL DRIP 250 ML IV PRN (14:17)
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
[2016-12-29] MEDS: MAGNESIUM HYDROXIDE SUSP 30 ML CUP PO SCH ×2 (19:58→21:15)
[2016-12-29] MEDS: REMOVE OLD LIDOCAINE PATCH T-DERMAL SCH (21:00)
[2016-12-30] VITALS (20 sets, daily range): BP systolic 116–165; BP diastolic 44–74; PULSE 60–116; RESP 12–30; TEMP 98.5–100.9; O2SAT 93–100
[2016-12-30] MEDS: PIPERACIL-TAZO 4.5 GM PREMIX 100 ML IV SCH ×4 (00:11→17:16)
[2016-12-30] MEDS: METOPROLOL TARTRATE 5 MG/5 ML VIAL IV PUSH SCH ×5 (00:40→21:44)
[2016-12-30] MEDS: PROPOFOL 1000 MG/100 ML INJ 100 ML IV PRN ×5 (00:41→20:33)
[2016-12-30] MEDS: CHLORHEXIDINE GLUCONATE 2 % 1 PACK (2 CLOTHS) TOP SCH (00:41)
[2016-12-30] MEDS: fentaNYL DRIP 250 ML IV PRN ×2 (02:34→16:46)
[2016-12-30 03:43] LABS: BLOOD GAS BASE EXCESS 0.1 mmol/L (-2-2); BLOOD GAS CARBOXYHEMOGLOBIN 1.3 % (0-4); BLOOD GAS HCO3 24 mmol/L (22-26); BLOOD GAS O2 HGB SATURATION 96 % (90-100); BLOOD GAS PCO2 35 mmHg (38-42); BLOOD GAS PO2 105 mmHg (61-120); CRITICAL VALUE NO; OXYGEN DEVICE VENT; TEMP CORR TO 98.6
[2016-12-30 03:44] LABS: DRAW SITE ART LINE; FIO2 50 %; STAT NO; ULNAR PULSE PRESENT; VENT SETTINGS SEE COMMENTS
[2016-12-30 04:35] LABS: AUTOMATED NEUTROPHIL # 8.5 TH/MM3 (1.8-7.7); BASOPHIL # 0.1 TH/MM3 (0-0.2); BASOPHIL % 0.5 % (0.0-2.0); EOSINOPHIL # 0.8 TH/MM3 (0-0.4); EOSINOPHIL % 7.3 % (0.0-4.0); HEMATOCRIT 21.8 % (39.0-51.0); LYMPH % 7.8 % (9.0-44.0); LYMPHOCYTE # 0.9 TH/MM3 (1.0-4.8); MEAN CELL VOLUME 87.4 FL (80.0-100.0); MEAN CORPUSCULAR HEMOGLOBIN 29.2 PG (27.0-34.0); MEAN CORPUSCULAR HGB CONC 33.5 % (32.0-36.0); MONO % 10.8 % (0.0-8.0); NEUT % 73.6 % (16.0-70.0); PLATELET COUNT 243 TH/MM3 (150-450); RED BLOOD COUNT 2.49 MIL/MM3 (4.50-5.90); WHITE BLOOD COUNT 11.5 TH/MM3 (4.0-11.0)
[2016-12-30 04:37] LABS: HEMO FLAGS AUTO DIFF
[2016-12-30 04:54] LABS: ANION GAP 10 MEQ/L (5-15); AST (GOT) 17 U/L (15-37); BICARBONATE 26.7 MEQ/L (21.0-32.0); BLOOD UREA NITROGEN 23 MG/DL (7-18); CHLORIDE 104 MEQ/L (98-107); GLOMERULAR FILTRATION RATE 66 ML/MIN (>89); POTASSIUM 3.4 MEQ/L (3.5-5.1); SODIUM (NA) 141 MEQ/L (136-145)
[2016-12-30 04:57] LABS: ALKALINE PHOSPHATASE 48 U/L (45-117); ALT (GPT) 15 U/L (12-78)
--- NOTE | 2016-12-30 05:12 | RADRPT ---
EXAM DATE/TIME: 12/30/2016 03:30 [facility] COMPARISON: CHEST SINGLE AP, December 29, 2016, 4:51. INDICATIONS : Short of breath. MEDICAL HISTORY : Rib fractures. SURGICAL HISTORY : None. ENCOUNTER: Subsequent ACUITY: 4 - 6 days PAIN SCORE: Non-responsive. LOCATION: Bilateral chest FINDINGS: Basilar consolidation with pleural effusions again noted, moderate on the right and small on the left . No pneumothorax seen. Heart size stable, upper limits of normal. Endotracheal tube tip is approximately 3.5 cm above the cade. Nasogastric tube courses into the sto mach. There is a left subclavian central venous catheter with tip in the superior vena cava. CONCLUSION: No significant change. Davonte Grover MD on December 30, 2016 at 5:10 Board Certified Radiologist. This report was verified electronically.
[2016-12-30] MEDS: METHOCARBAMOL 500 MG TAB PO SCH ×3 (05:22→20:32)
[2016-12-30] MEDS: POTASSIUM CHLOR 40 MEQ PREMIX 100 ML IV PRN ×2 (05:25→21:25)
[2016-12-30 06:58] LABS: BANDS 15 % (0-6); CORRECTED NUCLEATED RBC 7 /100 WBC (0-0); EOSINOPHILS 8 % (0-4); NEUTROPHIL # MANUAL DIFF 9.3 TH/MM3 (1.8-7.7); POLYS (SEG NEUTROPHILS) 66 % (16-70); TOXIC GRANULATION 1+ (NORMAL); WBC DIFF SAMPLE 100
[2016-12-30 06:59] LABS: PLATELET ESTIMATE SMEAR NORMAL (NORMAL); PLATELET MORPHOLOGY ENLARGED (NORMAL); SCAN/DIFF FINAL DIFF MANUAL
[2016-12-30] MEDS: CHLORHEXIDINE 0.12% (ORAL KIT) 15 ML CUP MT SCH ×2 (08:30→20:31)
[2016-12-30] MEDS: FAMOTIDINE 20 MG/2 ML VIAL IV PUSH SCH ×2 (08:31→20:31)
[2016-12-30] MEDS: LIDOCAINE HCL 5% PATCH T-DERMAL SCH (08:31)
[2016-12-30] MEDS: FUROSEMIDE 20 MG/2 ML VIAL IV PUSH SCH (08:31)
[2016-12-30] MEDS: BISACODYL 10 MG SUPP RECTAL SCH (08:31)
[2016-12-30] MEDS: DOCUSATE SODIUM 50 MG/SENNA 8.6 MG TAB PO SCH ×2 (08:31→20:32)
[2016-12-30] MEDS: GABAPENTIN 100 MG CAP PO SCH ×3 (08:32→17:16)
[2016-12-30] MEDS ORDERED: FUROSEMIDE 40 MG/4 ML VIAL IV PUSH ONE (10:00)
[2016-12-30] MEDS: ENOXAPARIN SODIUM 40 MG/0.4 ML SYRINGE SQ SCH (10:25)
[2016-12-30] MEDS: QUEtiapine FUMARATE 25 MG TAB PO SCH ×2 (11:30→17:16)
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
[2016-12-30] MEDS: LISINOPRIL 10 MG TAB PO SCH ×2 (11:55→20:32)
[2016-12-30] MEDS: hydrALAZINE HCL 10 MG TAB PO SCH ×2 (12:00→17:16)
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
--- NOTE | 2016-12-30 18:16 | ECHRPT ---
Indication: CHEST PAIN CONCLUSIONS The left ventricular systolic function is normal with an estimated ejection fraction in the range of 55-60%. Mild concentric left ventricular hypertrophy. Left ventricular diastolic function parameters are normal. BP: 137 / 60 HR: 69 Rhythm: Sinus MEASUREMENTS (Male / Female) Normal Values Technical Quality:Technically difficult study 2D ECHO LV Diastolic Diameter PLAX 4.6 cm 4.2 - 5.9 / 3.9 - 5.3 cm LV Systolic Diameter PLAX 3.5 cm IVS Diastolic Thickness 1.1 cm 0.6 - 1.0 / 0.6 - 0.9 cm LVPW Diastolic Thickness 1.1 cm 0.6 - 1.0 / 0.6 - 0.9 cm LV Relative Wall Thickness 0.5 LVOT Diameter 2.6 cm Aortic Root Diameter 3.8 cm M-MODE AV Cusp Separation MM 1.9 cm DOPPLER AV Peak Velocity 160.0 cm/s AV Peak Gradient 10.2 mmHg AV Mean Gradient 5.0 mmHg AV Velocity Time Integral 23.3 cm LVOT Peak Velocity 132.0 cm/s LVOT Peak Gradient 7.0 mmHg LVOT Velocity Time Integral 21.5 cm LVOT Cardiac Index 3272.5 cm/minm AV Area Cont Eq vti 4.9 cm AV Area Cont Eq pk 4.4 cm Mitral E Point Velocity 104.0 cm/s Mitral A Point Velocity 140.0 cm/s Mitral E to A Ratio 0.7 LV E' Lateral Velocity 15.3 cm/s Mitral E to LV E' Lateral Ratio 6.8 LV E' Septal Velocity 7.8 cm/s Mitral E to LV E' Septal Ratio 13.3 TR Peak Velocity 182.0 cm/s TR Peak Gradient 13.2 mmHg FINDINGS LEFT VENTRICLE Normal left ventricular size. Mild concentric left ventricular hypertrophy. The left ventricular systolic function is normal with an estimated ejection fraction in the range of 55-60%. Left ventricular diastolic function parameters are normal. RIGHT VENTRICLE The right ventricular size is normal. The right ventricular systoilc function is normal. LEFT ATRIUM The left atrial size is normal. RIGHT ATRIUM The right atrial size is normal. ATRIAL SEPTUM The interatrial septum not well visualized. AORTA The aortic root and proximal ascending aorta are normal in size on limited imaging. MITRAL VALVE Structurally normal mitral valve. No mitral valve stenosis or regurgitation. AORTIC VALVE No aortic valve regurgitation. No aortic valve stenosis. TRICUSPID VALVE Structurally normal tricuspid valve. No tricuspid valve stenosis or regurgitation. PULMONARY VALVE The pulmonary valve is not well visualized. PERICARDIUM No pericardial effusion. Jack Barraza DO (Electronically Signed) Final Date:30 December 2016 18:15
[2016-12-30] MEDS: MAGNESIUM HYDROXIDE SUSP 30 ML CUP PO SCH (20:31)
[2016-12-30 20:50] LABS: HEMATOCRIT 26.1 % (39.0-51.0); REVIEW FLAG FINAL
[2016-12-30] MEDS: REMOVE OLD LIDOCAINE PATCH T-DERMAL SCH (21:00)
[2016-12-31] VITALS (18 sets, daily range): BP systolic 92–123; BP diastolic 50–58; PULSE 65–96; RESP 12–15; TEMP 98.5–100.4; O2SAT 93–100
[2016-12-31] MEDS: PIPERACIL-TAZO 4.5 GM PREMIX 100 ML IV SCH ×5 (00:33→23:55)
[2016-12-31] MEDS: QUEtiapine FUMARATE 25 MG TAB PO SCH ×5 (00:33→23:55)
[2016-12-31] MEDS: PROPOFOL 1000 MG/100 ML INJ 100 ML IV PRN ×2 (01:31→08:14)
[2016-12-31] MEDS: CHLORHEXIDINE GLUCONATE 2 % 1 PACK (2 CLOTHS) TOP SCH (04:00)
[2016-12-31] MEDS: METOPROLOL TARTRATE 5 MG/5 ML VIAL IV PUSH SCH ×4 (04:00→22:31)
[2016-12-31 04:04] LABS: AUTOMATED NEUTROPHIL # 7.6 TH/MM3 (1.8-7.7); BASOPHIL % 0.5 % (0.0-2.0); EOSINOPHIL # 0.9 TH/MM3 (0-0.4); EOSINOPHIL % 8.5 % (0.0-4.0); HEMATOCRIT 24.6 % (39.0-51.0); LYMPH % 8.9 % (9.0-44.0); LYMPHOCYTE # 0.9 TH/MM3 (1.0-4.8); MEAN CELL VOLUME 85.6 FL (80.0-100.0); MEAN CORPUSCULAR HEMOGLOBIN 29.8 PG (27.0-34.0); MEAN CORPUSCULAR HGB CONC 34.8 % (32.0-36.0); MONO % 10.6 % (0.0-8.0); NEUT % 71.5 % (16.0-70.0); PLATELET COUNT 285 TH/MM3 (150-450); RED BLOOD COUNT 2.87 MIL/MM3 (4.50-5.90); WHITE BLOOD COUNT 10.6 TH/MM3 (4.0-11.0)
[2016-12-31 04:11] LABS: HEMO FLAGS AUTO DIFF
[2016-12-31 04:20] LABS: BLOOD GAS BASE EXCESS 5.5 mmol/L (-2-2); BLOOD GAS CARBOXYHEMOGLOBIN 1.6 % (0-4); BLOOD GAS HCO3 30 mmol/L (22-26); BLOOD GAS O2 HGB SATURATION 93 % (90-100); BLOOD GAS OXYGEN CONTENT 11.8 Vol % (12.0-20.0); BLOOD GAS PCO2 44 mmHg (38-42); BLOOD GAS PO2 72 mmHg (61-120); CRITICAL VALUE NO; OXYGEN DEVICE VENT; TEMP CORR TO 98.6
[2016-12-31 04:22] LABS: DRAW SITE RT RADIAL; FIO2 50 %; NUMBER OF ARTERIAL PUNCTURES 1; STAT NO; ULNAR PULSE PRESENT
[2016-12-31 04:25] LABS: ALT (GPT) 15 U/L (12-78); ANION GAP 7 MEQ/L (5-15); AST (GOT) 20 U/L (15-37); BICARBONATE 31.9 MEQ/L (21.0-32.0); BLOOD UREA NITROGEN 24 MG/DL (7-18); CHLORIDE 104 MEQ/L (98-107); GLOMERULAR FILTRATION RATE 55 ML/MIN (>89); POTASSIUM 3.5 MEQ/L (3.5-5.1); SODIUM (NA) 143 MEQ/L (136-145)
[2016-12-31 04:27] LABS: ALKALINE PHOSPHATASE 57 U/L (45-117)
[2016-12-31] MEDS: METHOCARBAMOL 500 MG TAB PO SCH ×3 (04:50→22:32)
[2016-12-31] MEDS: POTASSIUM CHLOR 40 MEQ PREMIX 100 ML IV PRN (04:50)
[2016-12-31] MEDS: hydrALAZINE HCL 10 MG TAB PO SCH ×5 (04:50→23:49)
[2016-12-31] MEDS: fentaNYL DRIP 250 ML IV PRN ×2 (05:12→21:14)
--- NOTE | 2016-12-31 05:44 | RADRPT ---
EXAM DATE/TIME: 12/31/2016 04:16 [place] COMPARISON: CHEST SINGLE AP, December 30, 2016, 3:30. INDICATIONS : Shortness of breath. MEDICAL HISTORY : Rib fractures. SURGICAL HISTORY : ORIF right clavicle ENCOUNTER: Subsequent ACUITY: 1 week PAIN SCORE: Non-responsive. LOCATION: Bilateral chest FINDINGS: Bibasilar consolidation with small effusions again noted, improving on the right, not significantly c hanged on the left. No pneumothorax is seen. Heart size stable, thin normal limits. Intergraph endotracheal tube tip is about 3 [address] terrence a. Nasogastric tube courses into the stomach. There is a left subclavian central venous catheter agai n seen, tip in the superior vena cava. CONCLUSION: Bibasilar consolidation with small effusions, improved on the right and relatively unchanged on the l eft. Unchanged lines and tubes as above. Davonte Grover MD on December 31, 2016 at 5:41 Board Certified Radiologist. This report was verified electronically.
[2016-12-31] MEDS: CHLORHEXIDINE 0.12% (ORAL KIT) 15 ML CUP MT SCH ×2 (07:53→20:00)
[2016-12-31] MEDS: DOCUSATE SODIUM 50 MG/SENNA 8.6 MG TAB PO SCH ×2 (07:53→20:37)
[2016-12-31] MEDS: GABAPENTIN 100 MG CAP PO SCH ×3 (07:54→16:26)
[2016-12-31] MEDS: FAMOTIDINE 20 MG/2 ML VIAL IV PUSH SCH ×2 (07:54→20:36)
[2016-12-31] MEDS: BISACODYL 10 MG SUPP RECTAL SCH (07:54)
[2016-12-31] MEDS: LISINOPRIL 10 MG TAB PO SCH ×2 (07:54→20:37)
[2016-12-31] MEDS: FUROSEMIDE 20 MG/2 ML VIAL IV PUSH SCH (07:54)
[2016-12-31] MEDS: LIDOCAINE HCL 5% PATCH T-DERMAL SCH (07:55)
[2016-12-31] MEDS: ENOXAPARIN SODIUM 40 MG/0.4 ML SYRINGE SQ SCH (08:14)
[2016-12-31 08:52] LABS: BANDS 11 % (0-6); CORRECTED NUCLEATED RBC 2 /100 WBC (0-0); EOSINOPHILS 6 % (0-4); MYELOCYTES 1 % (0-0); NEUTROPHIL # MANUAL DIFF 8.4 TH/MM3 (1.8-7.7); POLYS (SEG NEUTROPHILS) 67 % (16-70); WBC DIFF SAMPLE 100
[2016-12-31 08:53] LABS: OVALOCYTES 1+ (NORMAL); PLATELET ESTIMATE SMEAR NORMAL (NORMAL); PLATELET MORPHOLOGY ENLARGED (NORMAL); SCAN/DIFF FINAL DIFF MANUAL; TOXIC GRANULATION 2+ (NORMAL)
[2016-12-31] MEDS: DEXMEDETOMIDINE INJ 200 MCG in SODIUM CHLORIDE 0.9% INJ 50 ML IV PRN ×2 (10:30→12:40)
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
[2016-12-31] MEDS: DEXMEDETOMIDINE INJ 1,000 MCG in SODIUM CHLOR 0.9% 250 ML INJ 250 ML IV PRN ×2 (15:20→22:46)
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
[2016-12-31] MEDS ORDERED: PROPOFOL 1000 MG/100 ML INJ 100 ML ONE (18:57)
[2016-12-31] MEDS ORDERED: PROPOFOL 1000 MG/100 ML IV PRN (19:00)
[2016-12-31] MEDS: MAGNESIUM HYDROXIDE SUSP 30 ML CUP PO SCH (20:37)
[2016-12-31] MEDS: REMOVE OLD LIDOCAINE PATCH T-DERMAL SCH (21:00)
[2017-01-01] VITALS (18 sets, daily range): BP systolic 93–176; BP diastolic 50–90; PULSE 57–106; RESP 12–34; TEMP 99–102.1; O2SAT 92–98
[2017-01-01] MEDS: METOPROLOL TARTRATE 5 MG/5 ML VIAL IV PUSH SCH ×5 (03:41→22:00)
[2017-01-01] MEDS: CHLORHEXIDINE GLUCONATE 2 % 1 PACK (2 CLOTHS) TOP SCH (03:42)
[2017-01-01 05:06] LABS: AUTOMATED NEUTROPHIL # 9.1 TH/MM3 (1.8-7.7); BASOPHIL # 0.1 TH/MM3 (0-0.2); BASOPHIL % 0.5 % (0.0-2.0); EOSINOPHIL # 0.8 TH/MM3 (0-0.4); EOSINOPHIL % 6.5 % (0.0-4.0); HEMATOCRIT 24.6 % (39.0-51.0); LYMPH % 7.6 % (9.0-44.0); LYMPHOCYTE # 0.9 TH/MM3 (1.0-4.8); MEAN CELL VOLUME 86.6 FL (80.0-100.0); MEAN CORPUSCULAR HEMOGLOBIN 28.6 PG (27.0-34.0); MEAN CORPUSCULAR HGB CONC 33.1 % (32.0-36.0); MONO % 11.6 % (0.0-8.0); NEUT % 73.8 % (16.0-70.0); PLATELET COUNT 360 TH/MM3 (150-450); RED BLOOD COUNT 2.84 MIL/MM3 (4.50-5.90); RED CELL DISTRIBUTION WIDTH 15.9 % (11.6-17.2); WHITE BLOOD COUNT 12.3 TH/MM3 (4.0-11.0)
[2017-01-01] MEDS: hydrALAZINE HCL 10 MG TAB PO SCH ×4 (05:16→23:24)
[2017-01-01 05:31] LABS: HEMO FLAGS AUTO DIFF
[2017-01-01 05:34] LABS: BICARBONATE 30.1 MEQ/L (21.0-32.0); POTASSIUM 3.6 MEQ/L (3.5-5.1)
[2017-01-01] MEDS: PIPERACIL-TAZO 4.5 GM PREMIX 100 ML IV SCH (05:58)
[2017-01-01] MEDS: QUEtiapine FUMARATE 25 MG TAB PO SCH ×3 (05:58→21:57)
[2017-01-01] MEDS: METHOCARBAMOL 500 MG TAB PO SCH ×3 (05:58→21:57)
[2017-01-01] MEDS: DEXMEDETOMIDINE INJ 1,000 MCG in SODIUM CHLOR 0.9% 250 ML INJ 250 ML IV PRN (07:32)
[2017-01-01 08:16] LABS: BANDS 5 % (0-6); BASOPHILS 1 % (0-2); CORRECTED NUCLEATED RBC 2 /100 WBC (0-0); EOSINOPHILS 14 % (0-4); METAMYELOCYTES 1 % (0-1); MYELOCYTES 1 % (0-0); NEUTROPHIL # MANUAL DIFF 8.4 TH/MM3 (1.8-7.7); POLYS (SEG NEUTROPHILS) 61 % (16-70); TOXIC GRANULATION 2+ (NORMAL); WBC DIFF SAMPLE 100
[2017-01-01 08:17] LABS: SCAN/DIFF FINAL DIFF MANUAL
[2017-01-01] MEDS: FUROSEMIDE 20 MG/2 ML VIAL IV PUSH SCH (08:30)
[2017-01-01] MEDS: FAMOTIDINE 20 MG/2 ML VIAL IV PUSH SCH ×2 (08:30→20:42)
[2017-01-01] MEDS: CHLORHEXIDINE 0.12% (ORAL KIT) 15 ML CUP MT SCH ×2 (08:30→20:00)
[2017-01-01] MEDS: ENOXAPARIN SODIUM 40 MG/0.4 ML SYRINGE SQ SCH (08:31)
[2017-01-01] MEDS: LIDOCAINE HCL 5% PATCH T-DERMAL SCH (08:31)
[2017-01-01] MEDS: BISACODYL 10 MG SUPP RECTAL SCH (08:32)
[2017-01-01] MEDS: DOCUSATE SODIUM 50 MG/SENNA 8.6 MG TAB PO SCH ×2 (08:32→20:42)
[2017-01-01] MEDS: GABAPENTIN 100 MG CAP PO SCH ×3 (08:32→17:49)
[2017-01-01] MEDS: LISINOPRIL 10 MG TAB PO SCH (08:32)
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
--- NOTE | 2017-01-01 09:23 | RADRPT ---
EXAM DATE/TIME: 01/01/2017 08:43 [facility] COMPARISON: CHEST SINGLE AP, December 31, 2016, 4:16. INDICATIONS : Short of breath MEDICAL HISTORY : rib and clavicle fractures SURGICAL HISTORY : ORIF right clavicle ENCOUNTER: Subsequent ACUITY: 1 week PAIN SCORE: Non-responsive. LOCATION: Bilateral chest FINDINGS: Endotracheal tube is stable and in satisfactory position with tip approximately 4-5 cm above the wolf na. Nasogastric tube descends to the stomach. Clavian central line is stable and satisfactory positio n. Patchy bilateral pleural-parenchymal opacities are unchanged. Cardiac contours are grossly stable. Posttraumatic bony findings are again noted. CONCLUSION: Stable chest Davonte Stern MD on January 01, 2017 at 9:17 Board Certified Radiologist. This report was verified electronically.
[2017-01-01 10:11] LABS: BLOOD GAS BASE EXCESS 7.1 mmol/L (-2-2); BLOOD GAS CARBOXYHEMOGLOBIN 1.4 % (0-4); BLOOD GAS HCO3 31 mmol/L (22-26); BLOOD GAS METHEMOGLOBIN 0.8 % (0-2); BLOOD GAS O2 HGB SATURATION 93 % (90-100); BLOOD GAS PCO2 41 mmHg (38-42); BLOOD GAS PO2 73 mmHg (61-120); BLOOD GAS TOTAL HGB 10.6 G/DL (12.0-16.0); CRITICAL VALUE NO; DRAW SITE LT RADIAL; FIO2 40 %; NUMBER OF ARTERIAL PUNCTURES 1; OXYGEN DEVICE VENTILATOR; STAT NO; TEMP CORR TO 98.6; ULNAR PULSE PRESENT; VENT SETTINGS CPAP 5 PS 5
[2017-01-01] MEDS: LEVOFLOXACIN 500 MG TAB PO SCH (10:36)
[2017-01-01] MEDS: LACTATED RINGER'S 1000 ML INJ 1,000 ML IV SCH (10:36)
[2017-01-01] MEDS: oxyCODONE/ACETAMINOPHEN 5 MG/325 MG TAB PO SCH ×3 (10:37→21:57)
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
[2017-01-01] MEDS ORDERED: FUROSEMIDE 40 MG/4 ML VIAL IV PUSH ONE (15:00)
[2017-01-01] MEDS: HYDROmorphone HCL PF 1 MG/ML VIAL IV PUSH PRN (15:08)
[2017-01-01] MEDS ORDERED: ETOMIDATE 20 MG/10 ML VIAL ONE (16:29)
[2017-01-01] MEDS ORDERED: MIDAZOLAM HCL 5 MG/ML VIAL (1 ML) ONE (16:30)
[2017-01-01] MEDS ORDERED: ROCURONIUM INJ 50 MG/5 ML VIAL ONE (16:30)
[2017-01-01 16:45] LABS: ALT (GPT) 20 U/L (12-78); ANION GAP 8 MEQ/L (5-15); AST (GOT) 31 U/L (15-37); BICARBONATE 31.3 MEQ/L (21.0-32.0); BLOOD UREA NITROGEN 29 MG/DL (7-18); CHLORIDE 104 MEQ/L (98-107); GLOMERULAR FILTRATION RATE 50 ML/MIN (>89); SODIUM (NA) 143 MEQ/L (136-145)
--- NOTE | 2017-01-01 16:47 | PD.PROCEDR ---
Procedure Note Procedure Indication: Failed extubation. tachypneic hypoxic Sedated with Etomidate, Versed and, neuromuscular paralysis with rocuronium INTUBATION: The patient was put in optimal position for the procedure. DL with Mac 4 blade Grade 1 view, single attempt. Patient intubated with a 8.0 cuffed endotracheal tube. Tube placement was confirmed by visualization of the tube and balloon passing through the cords, capnometry and subsequent chest x-ray. Breath sounds were equal and well aerated bilaterally postintubation. No breath sounds over stomach. Patient tolerated procedure well. Lester Arauz MD Jan 01, 2017 16:47
[2017-01-01 16:48] LABS: ALKALINE PHOSPHATASE 80 U/L (45-117); TOTAL BILIRUBIN ADULT 0.8 MG/DL (0.2-1.0)
[2017-01-01] MEDS: fentaNYL DRIP 250 ML IV PRN (17:00)
[2017-01-01] MEDS: PROPOFOL 1000 MG/100 ML INJ 100 ML IV PRN ×2 (17:00→22:50)
--- NOTE | 2017-01-01 17:15 | RADRPT ---
EXAM DATE/TIME: 01/01/2017 16:45 [facility] COMPARISON: CHEST SINGLE AP, January 01, 2017, 8:43. INDICATIONS : Respiratory failure status post intubation.. MEDICAL HISTORY : Rib and clavicle fractures. SURGICAL HISTORY : ORIF clavicle. ENCOUNTER: Subsequent ACUITY: 1 day PAIN SCORE: Non-responsive. LOCATION: Bilateral chest FINDINGS: A single AP portable erect view of the chest was obtained and demonstrates an endotracheal tube in pl sosa with the tip 4 cm above the cade. The left subclavian central venous line remains in place. The nasogastric tube has been removed. There is hazy opacity in both lungs with more consolidative opaci ty at both lung bases. The costophrenic angles are blunted. The heart size is moderately enlarged. Th ere is a screw-plate fixation device again noted transfixing an old right clavicular fracture. There are multiple overlying electrocardiogram leads. CONCLUSION: 1. Endotracheal tube in place. 2. Cardiomegaly with hazy opacity in both lungs as well as bilateral effusions. The findings may chance sidra congestive heart failure. Terrence Church MD on January 01, 2017 at 17:08 Board Certified Radiologist. This report was verified electronically.
[2017-01-01 17:35] LABS: BLOOD GAS BASE EXCESS 5.2 mmol/L (-2-2); BLOOD GAS CARBOXYHEMOGLOBIN 1.4 % (0-4); BLOOD GAS HCO3 30 mmol/L (22-26); BLOOD GAS METHEMOGLOBIN 0.7 % (0-2); BLOOD GAS O2 HGB SATURATION 90 % (90-100); BLOOD GAS OXYGEN CONTENT 12.6 Vol % (12.0-20.0); BLOOD GAS PCO2 50 mmHg (38-42); BLOOD GAS PO2 67 mmHg (61-120); BLOOD GAS TOTAL HGB 9.8 G/DL (12.0-16.0); CRITICAL VALUE NO; OXYGEN DEVICE VENTILATOR; TEMP CORR TO 98.6
[2017-01-01 17:36] LABS: DRAW SITE RT RADIAL; FIO2 100 %; NUMBER OF ARTERIAL PUNCTURES 1; STAT NO; ULNAR PULSE PRESENT; VENT SETTINGS PRVC/RR12/VT650/+5
[2017-01-01] MEDS: MAGNESIUM HYDROXIDE SUSP 30 ML CUP PO SCH (20:42)
[2017-01-01] MEDS: REMOVE OLD LIDOCAINE PATCH T-DERMAL SCH (20:43)
[2017-01-02] VITALS (19 sets, daily range): BP systolic 92–143; BP diastolic 54–90; PULSE 73–97; RESP 14–21; TEMP 99–101.2; O2SAT 92–97
[2017-01-02] MEDS: ACETAMINOPHEN 325 MG TAB PO PRN (00:43)
[2017-01-02] MEDS: LACTATED RINGER'S 1000 ML INJ 1,000 ML IV SCH ×2 (00:43→12:45)
[2017-01-02] MEDS: METOPROLOL TARTRATE 5 MG/5 ML VIAL IV PUSH SCH ×4 (02:52→20:44)
[2017-01-02] MEDS: CHLORHEXIDINE GLUCONATE 2 % 1 PACK (2 CLOTHS) TOP SCH (04:00)
[2017-01-02] MEDS: oxyCODONE/ACETAMINOPHEN 5 MG/325 MG TAB PO SCH ×4 (04:13→20:44)
[2017-01-02] MEDS: PROPOFOL 1000 MG/100 ML INJ 100 ML IV PRN ×5 (04:14→22:26)
[2017-01-02 05:07] LABS: AUTOMATED NEUTROPHIL # 11.3 TH/MM3 (1.8-7.7); BASOPHIL # 0.1 TH/MM3 (0-0.2); BASOPHIL % 0.5 % (0.0-2.0); EOSINOPHIL # 0.8 TH/MM3 (0-0.4); EOSINOPHIL % 5.3 % (0.0-4.0); HEMATOCRIT 24.9 % (39.0-51.0); LYMPH % 10.4 % (9.0-44.0); LYMPHOCYTE # 1.6 TH/MM3 (1.0-4.8); MEAN CELL VOLUME 86.3 FL (80.0-100.0); MEAN CORPUSCULAR HGB CONC 33.6 % (32.0-36.0); MONO % 11.2 % (0.0-8.0); NEUT % 72.6 % (16.0-70.0); PLATELET COUNT 407 TH/MM3 (150-450); RED BLOOD COUNT 2.89 MIL/MM3 (4.50-5.90); RED CELL DISTRIBUTION WIDTH 15.9 % (11.6-17.2); WHITE BLOOD COUNT 15.6 TH/MM3 (4.0-11.0)
[2017-01-02 05:13] LABS: HEMO FLAGS AUTO DIFF
[2017-01-02 05:28] LABS: BICARBONATE 31.7 MEQ/L (21.0-32.0); POTASSIUM 3.3 MEQ/L (3.5-5.1)
[2017-01-02] MEDS: hydrALAZINE HCL 10 MG TAB PO SCH ×4 (05:34→23:23)
[2017-01-02] MEDS: METHOCARBAMOL 500 MG TAB PO SCH ×3 (05:44→20:44)
[2017-01-02] MEDS: QUEtiapine FUMARATE 25 MG TAB PO SCH ×3 (05:44→20:45)
[2017-01-02] MEDS: POTASSIUM CHLOR 40 MEQ PREMIX 100 ML IV PRN (06:50)
[2017-01-02 08:19] LABS: BANDS 7 % (0-6); CORRECTED NUCLEATED RBC 1 /100 WBC (0-0); EOSINOPHILS 4 % (0-4); METAMYELOCYTES 1 % (0-1); MYELOCYTES 1 % (0-0); NEUTROPHIL # MANUAL DIFF 12.6 TH/MM3 (1.8-7.7); POLYS (SEG NEUTROPHILS) 72 % (16-70); WBC DIFF SAMPLE 100
[2017-01-02 08:20] LABS: PLATELET ESTIMATE SMEAR NORMAL (NORMAL); PLATELET MORPHOLOGY NORMAL (NORMAL); SCAN/DIFF FINAL DIFF MANUAL; TOXIC GRANULATION 1+ (NORMAL)
[2017-01-02] MEDS: DOCUSATE SODIUM 50 MG/SENNA 8.6 MG TAB PO SCH ×2 (09:00→20:46)
[2017-01-02] MEDS: BISACODYL 10 MG SUPP RECTAL SCH (09:00)
[2017-01-02] MEDS: CHLORHEXIDINE 0.12% (ORAL KIT) 15 ML CUP MT SCH ×2 (09:15→22:37)
[2017-01-02] MEDS: FAMOTIDINE 20 MG/2 ML VIAL IV PUSH SCH ×2 (09:15→20:44)
[2017-01-02] MEDS: LIDOCAINE HCL 5% PATCH T-DERMAL SCH (09:16)
[2017-01-02] MEDS: ENOXAPARIN SODIUM 40 MG/0.4 ML SYRINGE SQ SCH (09:17)
[2017-01-02] MEDS: GABAPENTIN 100 MG CAP PO SCH ×3 (09:17→17:45)
[2017-01-02] MEDS: LEVOFLOXACIN 500 MG TAB PO SCH (09:22)
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
[2017-01-02] MEDS ORDERED: HYOSCYAMINE SOLN 0.125 MG/ML 15 ML BTL PO PRN (13:30)
[2017-01-02] MEDS: REMOVE OLD LIDOCAINE PATCH T-DERMAL SCH (20:45)
[2017-01-02] MEDS: MAGNESIUM HYDROXIDE SUSP 30 ML CUP PO SCH (20:46)
[2017-01-03] VITALS (15 sets, daily range): BP systolic 97–151; BP diastolic 53–71; PULSE 66–104; RESP 12–25; TEMP 98.4–99.5; O2SAT 92–97
[2017-01-03] MEDS: fentaNYL DRIP 250 ML IV PRN (02:43)
[2017-01-03] MEDS: oxyCODONE/ACETAMINOPHEN 5 MG/325 MG TAB PO SCH ×4 (02:48→21:12)
[2017-01-03] MEDS: PROPOFOL 1000 MG/100 ML INJ 100 ML IV PRN ×6 (02:48→20:18)
[2017-01-03] MEDS: CHLORHEXIDINE GLUCONATE 2 % 1 PACK (2 CLOTHS) TOP SCH (04:00)
[2017-01-03] MEDS: METOPROLOL TARTRATE 5 MG/5 ML VIAL IV PUSH SCH ×4 (05:34→21:12)
[2017-01-03] MEDS: METHOCARBAMOL 500 MG TAB PO SCH ×3 (05:34→21:12)
[2017-01-03] MEDS: hydrALAZINE HCL 10 MG TAB PO SCH ×4 (05:35→16:35)
[2017-01-03] MEDS: QUEtiapine FUMARATE 25 MG TAB PO SCH ×3 (05:35→21:11)
[2017-01-03 05:47] LABS: AUTOMATED NEUTROPHIL # 10.7 TH/MM3 (1.8-7.7); BASOPHIL # 0.1 TH/MM3 (0-0.2); BASOPHIL % 0.4 % (0.0-2.0); EOSINOPHIL # 0.8 TH/MM3 (0-0.4); EOSINOPHIL % 5.3 % (0.0-4.0); HEMATOCRIT 25.4 % (39.0-51.0); LYMPH % 10.2 % (9.0-44.0); LYMPHOCYTE # 1.5 TH/MM3 (1.0-4.8); MEAN CELL VOLUME 87.2 FL (80.0-100.0); MEAN CORPUSCULAR HEMOGLOBIN 28.8 PG (27.0-34.0); MONO % 9.3 % (0.0-8.0); NEUT % 74.8 % (16.0-70.0); PLATELET COUNT 517 TH/MM3 (150-450); RED BLOOD COUNT 2.91 MIL/MM3 (4.50-5.90); RED CELL DISTRIBUTION WIDTH 16.4 % (11.6-17.2); WHITE BLOOD COUNT 14.3 TH/MM3 (4.0-11.0)
[2017-01-03 05:50] LABS: HEMO FLAGS AUTO DIFF
[2017-01-03 05:57] LABS: BICARBONATE 32.7 MEQ/L (21.0-32.0); POTASSIUM 3.7 MEQ/L (3.5-5.1)
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
[2017-01-03] MEDS: LEVOFLOXACIN 500 MG TAB PO SCH (07:41)
[2017-01-03] MEDS: CHLORHEXIDINE 0.12% (ORAL KIT) 15 ML CUP MT SCH ×2 (07:41→20:16)
[2017-01-03] MEDS: GABAPENTIN 100 MG CAP PO SCH ×3 (07:41→16:36)
[2017-01-03] MEDS: FAMOTIDINE 20 MG/2 ML VIAL IV PUSH SCH ×2 (07:41→20:16)
[2017-01-03] MEDS: DOCUSATE SODIUM 50 MG/SENNA 8.6 MG TAB PO SCH ×2 (07:42→20:19)
[2017-01-03] MEDS: LIDOCAINE HCL 5% PATCH T-DERMAL SCH (07:42)
[2017-01-03] MEDS: BISACODYL 10 MG SUPP RECTAL SCH (07:42)
[2017-01-03 08:00] LABS: BANDS 5 % (0-6); EOSINOPHILS 4 % (0-4); MYELOCYTES 3 % (0-0); NEUTROPHIL # MANUAL DIFF 11.6 TH/MM3 (1.8-7.7); PLATELET ESTIMATE SMEAR HIGH (NORMAL); PLATELET MORPHOLOGY NORMAL (NORMAL); POLYS (SEG NEUTROPHILS) 73 % (16-70); SCAN/DIFF FINAL DIFF MANUAL; WBC DIFF SAMPLE 100
[2017-01-03] MEDS: ENOXAPARIN SODIUM 40 MG/0.4 ML SYRINGE SQ SCH (08:40)
[2017-01-03] MEDS: LACTATED RINGER'S 1000 ML INJ 1,000 ML IV SCH ×2 (09:30→20:18)
[2017-01-03] MEDS ORDERED: ALBUMIN HUMAN 5% 25 GM/500 ML BOTTLE IV ONE (10:00)
[2017-01-03] MEDS ORDERED: Central Line Short Term Adult 7Fr or larger PRN NS Lock Flush IV FLUSH (12:45)
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
[2017-01-03] MEDS: MAGNESIUM HYDROXIDE SUSP 30 ML CUP PO SCH (20:19)
[2017-01-03] MEDS: REMOVE OLD LIDOCAINE PATCH T-DERMAL SCH (21:00)
[2017-01-04] VITALS (17 sets, daily range): BP systolic 96–153; BP diastolic 53–70; PULSE 67–104; RESP 12–23; TEMP 98.7–100.7; O2SAT 93–98
[2017-01-04] MEDS: PROPOFOL 1000 MG/100 ML INJ 100 ML IV PRN ×6 (00:17→21:13)
[2017-01-04] MEDS: METOPROLOL TARTRATE 5 MG/5 ML VIAL IV PUSH SCH ×4 (03:44→20:46)
[2017-01-04] MEDS: oxyCODONE/ACETAMINOPHEN 5 MG/325 MG TAB PO SCH ×2 (03:44→08:52)
[2017-01-04] MEDS: fentaNYL DRIP 250 ML IV PRN (03:52)
[2017-01-04] MEDS: CHLORHEXIDINE GLUCONATE 2 % 1 PACK (2 CLOTHS) TOP SCH (04:00)
[2017-01-04] MEDS: QUEtiapine FUMARATE 25 MG TAB PO SCH ×3 (04:53→20:42)
[2017-01-04] MEDS: METHOCARBAMOL 500 MG TAB PO SCH ×3 (04:53→20:43)
[2017-01-04] MEDS: hydrALAZINE HCL 10 MG TAB PO SCH ×4 (04:55→16:52)
[2017-01-04 05:25] LABS: BLOOD GAS BASE EXCESS 7.8 mmol/L (-2-2); BLOOD GAS HCO3 32 mmol/L (22-26); BLOOD GAS O2 HGB SATURATION 93 % (90-100); BLOOD GAS OXYGEN CONTENT 17.7 Vol % (12.0-20.0); BLOOD GAS PCO2 47 mmHg (38-42); BLOOD GAS PO2 74 mmHg (61-120); BLOOD GAS TOTAL HGB 13.6 G/DL (12.0-16.0); CRITICAL VALUE NO; OXYGEN DEVICE VENT; TEMP CORR TO 98.6
[2017-01-04 05:26] LABS: DRAW SITE RT RADIAL; FIO2 50 %; NUMBER OF ARTERIAL PUNCTURES 1; STAT NO; ULNAR PULSE PRESENT; VENT SETTINGS SEE COMMENTS
[2017-01-04 05:31] LABS: AUTOMATED NEUTROPHIL # 8.8 TH/MM3 (1.8-7.7); BASOPHIL # 0.1 TH/MM3 (0-0.2); BASOPHIL % 0.5 % (0.0-2.0); EOSINOPHIL # 0.9 TH/MM3 (0-0.4); EOSINOPHIL % 7.3 % (0.0-4.0); HEMATOCRIT 25.3 % (39.0-51.0); LYMPH % 14.3 % (9.0-44.0); LYMPHOCYTE # 1.8 TH/MM3 (1.0-4.8); MEAN CELL VOLUME 87.2 FL (80.0-100.0); MEAN CORPUSCULAR HEMOGLOBIN 27.9 PG (27.0-34.0); MONO % 9.2 % (0.0-8.0); NEUT % 68.7 % (16.0-70.0); PLATELET COUNT 586 TH/MM3 (150-450); RED CELL DISTRIBUTION WIDTH 16.3 % (11.6-17.2); WHITE BLOOD COUNT 12.8 TH/MM3 (4.0-11.0)
[2017-01-04 05:34] LABS: HEMO FLAGS AUTO DIFF
[2017-01-04 05:46] LABS: ALT (GPT) 18 U/L (12-78); ANION GAP 5 MEQ/L (5-15); AST (GOT) 24 U/L (15-37); BICARBONATE 32.7 MEQ/L (21.0-32.0); BLOOD UREA NITROGEN 27 MG/DL (7-18); CHLORIDE 105 MEQ/L (98-107); GLOMERULAR FILTRATION RATE 63 ML/MIN (>89); MAGNESIUM 2.5 MG/DL (1.5-2.5); POTASSIUM 3.7 MEQ/L (3.5-5.1); SODIUM (NA) 143 MEQ/L (136-145)
[2017-01-04 05:48] LABS: ALKALINE PHOSPHATASE 69 U/L (45-117); TOTAL BILIRUBIN ADULT 0.4 MG/DL (0.2-1.0)
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
[2017-01-04 07:33] LABS: BANDS 1 % (0-6); EOSINOPHILS 4 % (0-4); METAMYELOCYTES 2 % (0-1); MYELOCYTES 2 % (0-0); POLYS (SEG NEUTROPHILS) 65 % (16-70); WBC DIFF SAMPLE 100
[2017-01-04 07:34] LABS: PLATELET ESTIMATE SMEAR HIGH (NORMAL); PLATELET MORPHOLOGY NORMAL (NORMAL); SCAN/DIFF FINAL DIFF MANUAL
[2017-01-04] MEDS: CHLORHEXIDINE 0.12% (ORAL KIT) 15 ML CUP MT SCH ×2 (08:18→21:12)
[2017-01-04] MEDS: Central Line Short Term Adult 7Fr or larger Daily NS Lock Flush IV FLUSH SCH (08:19)
[2017-01-04] MEDS: LIDOCAINE HCL 5% PATCH T-DERMAL SCH (08:19)
[2017-01-04] MEDS: BISACODYL 10 MG SUPP RECTAL SCH (08:20)
[2017-01-04] MEDS: FAMOTIDINE 20 MG/2 ML VIAL IV PUSH SCH ×2 (08:22→20:46)
[2017-01-04] MEDS: LEVOFLOXACIN 500 MG TAB PO SCH (08:22)
[2017-01-04] MEDS: DOCUSATE SODIUM 50 MG/SENNA 8.6 MG TAB PO SCH ×2 (08:22→20:46)
[2017-01-04] MEDS: GABAPENTIN 100 MG CAP PO SCH ×3 (08:22→16:52)
[2017-01-04] MEDS: ENOXAPARIN SODIUM 40 MG/0.4 ML SYRINGE SQ SCH (08:43)
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
[2017-01-04] MEDS ORDERED: DEXMEDETOMIDINE INJ 200 MCG in SODIUM CHLORIDE 0.9% INJ 50 ML IV PRN (09:30)
[2017-01-04] MEDS ORDERED: oxyCODONE/ACETAMINOPHEN 5 MG/325 MG TAB PO PRN (10:00)
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
[2017-01-04] MEDS: LORazepam 2 MG/ML VIAL IV PUSH PRN (13:51)
[2017-01-04] MEDS: LACTATED RINGER'S 1000 ML INJ 1,000 ML IV SCH (14:35)
[2017-01-04] MEDS: ACETAMINOPHEN 325 MG TAB PO PRN (15:33)
[2017-01-04] MEDS: MAGNESIUM HYDROXIDE SUSP 30 ML CUP PO SCH (20:46)
[2017-01-04] MEDS: REMOVE OLD LIDOCAINE PATCH T-DERMAL SCH (21:00)
[2017-01-05] VITALS (17 sets, daily range): BP systolic 101–140; BP diastolic 54–75; PULSE 64–98; RESP 15–24; TEMP 98.7–100.1; O2SAT 92–98
[2017-01-05] MEDS: PROPOFOL 1000 MG/100 ML INJ 100 ML IV PRN ×6 (00:39→23:06)
[2017-01-05] MEDS: fentaNYL DRIP 250 ML IV PRN ×2 (00:42→15:43)
[2017-01-05] MEDS: CHLORHEXIDINE GLUCONATE 2 % 1 PACK (2 CLOTHS) TOP SCH (04:00)
[2017-01-05] MEDS: METOPROLOL TARTRATE 5 MG/5 ML VIAL IV PUSH SCH ×4 (04:11→21:27)
[2017-01-05] MEDS: hydrALAZINE HCL 10 MG TAB PO SCH ×5 (05:43→18:00)
[2017-01-05] MEDS: METHOCARBAMOL 500 MG TAB PO SCH ×3 (05:43→21:27)
[2017-01-05] MEDS: QUEtiapine FUMARATE 25 MG TAB PO SCH ×3 (05:43→21:26)
[2017-01-05 05:47] LABS: BLOOD GAS BASE EXCESS 2.6 mmol/L (-2-2); BLOOD GAS CARBOXYHEMOGLOBIN 1.1 % (0-4); BLOOD GAS HCO3 27 mmol/L (22-26); BLOOD GAS O2 HGB SATURATION 92 % (90-100); BLOOD GAS OXYGEN CONTENT 13.8 Vol % (12.0-20.0); BLOOD GAS PCO2 43 mmHg (38-42); BLOOD GAS PO2 72 mmHg (61-120); BLOOD GAS TOTAL HGB 10.6 G/DL (12.0-16.0); CRITICAL VALUE NO; OXYGEN DEVICE VENTILATOR; TEMP CORR TO 98.6
[2017-01-05 05:48] LABS: DRAW SITE LT RADIAL; FIO2 45 %; NUMBER OF ARTERIAL PUNCTURES 1; STAT NO; ULNAR PULSE PRESENT
[2017-01-05 06:55] LABS: AUTOMATED NEUTROPHIL # 10.3 TH/MM3 (1.8-7.7); BASOPHIL # 0.1 TH/MM3 (0-0.2); BASOPHIL % 0.6 % (0.0-2.0); EOSINOPHIL # 0.9 TH/MM3 (0-0.4); EOSINOPHIL % 6.4 % (0.0-4.0); HEMATOCRIT 25.8 % (39.0-51.0); LYMPH % 14.5 % (9.0-44.0); LYMPHOCYTE # 2.1 TH/MM3 (1.0-4.8); MEAN CELL VOLUME 88.6 FL (80.0-100.0); MEAN CORPUSCULAR HEMOGLOBIN 28.2 PG (27.0-34.0); MEAN CORPUSCULAR HGB CONC 31.8 % (32.0-36.0); NEUT % 70.5 % (16.0-70.0); PLATELET COUNT 696 TH/MM3 (150-450); RED BLOOD COUNT 2.91 MIL/MM3 (4.50-5.90); RED CELL DISTRIBUTION WIDTH 15.8 % (11.6-17.2); WHITE BLOOD COUNT 14.5 TH/MM3 (4.0-11.0)
[2017-01-05 07:04] LABS: HEMO FLAGS AUTO DIFF
[2017-01-05 07:37] LABS: ALT (GPT) 25 U/L (12-78); ANION GAP 7 MEQ/L (5-15); AST (GOT) 32 U/L (15-37); CHLORIDE 105 MEQ/L (98-107); GLOMERULAR FILTRATION RATE 63 ML/MIN (>89); MAGNESIUM 2.4 MG/DL (1.5-2.5); POTASSIUM 4.2 MEQ/L (3.5-5.1); SODIUM (NA) 140 MEQ/L (136-145)
[2017-01-05 07:44] LABS: ALKALINE PHOSPHATASE 98 U/L (45-117); BLOOD UREA NITROGEN 23 MG/DL (7-18); TOTAL BILIRUBIN ADULT 0.7 MG/DL (0.2-1.0)
[2017-01-05 08:15] LABS: SCAN/DIFF AUTO DIFF CONFIRMED
[2017-01-05] MEDS: ENOXAPARIN SODIUM 40 MG/0.4 ML SYRINGE SQ SCH (08:26)
[2017-01-05] MEDS: BISACODYL 10 MG SUPP RECTAL SCH (08:26)
[2017-01-05] MEDS: FAMOTIDINE 20 MG/2 ML VIAL IV PUSH SCH ×2 (08:27→20:08)
[2017-01-05] MEDS: GABAPENTIN 100 MG CAP PO SCH ×3 (08:27→18:39)
[2017-01-05] MEDS: DOCUSATE SODIUM 50 MG/SENNA 8.6 MG TAB PO SCH ×2 (08:27→20:18)
[2017-01-05] MEDS: CHLORHEXIDINE 0.12% (ORAL KIT) 15 ML CUP MT SCH ×2 (08:27→20:08)
[2017-01-05] MEDS: LEVOFLOXACIN 500 MG TAB PO SCH (08:27)
[2017-01-05] MEDS: Central Line Short Term Adult 7Fr or larger Daily NS Lock Flush IV FLUSH SCH (08:28)
[2017-01-05] MEDS: LIDOCAINE HCL 5% PATCH T-DERMAL SCH (08:28)
[2017-01-05] MEDS: LACTATED RINGER'S 1000 ML INJ 1,000 ML IV SCH (11:30)
[2017-01-05] MEDS: ARTIFICIAL TEARS OPTH SOLN 15 ML BTL EACH EYE SCH ×2 (13:25→20:18)
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
--- NOTE | 2017-01-05 16:17 | HHI.CCPN ---
Subjective Brief History 76-year-old male-[place] [facility] [place] rib fractures, left small pneumothorax , splenic injury grade 3 No head injury Patient was observed first 24 hours and then underwent exploratory laparotomy with splenectomy 24 Hour Review/Hospital Course 12/26 patient stable during night hours with H&H remained stable as well, in the morning hours patient started to become hypotensive his hemoglobin dropped to 9.3, he responded well to 2 L IV fluid and PRBC, however his abdomen became distended and he developed sign of peritonitis, so that I decided to bring the patient emergently to the OR for exploration. 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 During the procedure about a liter of free blood was encountered in the abdomen and spleen was injured obviously way more than it looked on the CAT scan Postoperatively patient is stable He remains on the ventilator Left subclavian triple-lumen placed without difficulty today 12/28/16 No new events through the night however this morning patient bit through the endotracheal tube and had to be emergently reintubated Grateful for cylindrical mixer rapid reaction Patient doing well now PO2 FiO2 gradient improving Hemoglobin remains stable relative to fluid to dilutional effect Patient is about 10 Liters positive and currently fluid overloaded. We will gently diurese with Bumex and Lasix today and foreseeable future 12/29/16 No change in current status Bilateral good breath sounds small left hemothorax not worth draining considering the risks Abdomen is soft slightly distended NG tube is in place draining clear gastric material Patient hasn't had a bowel movement yet Hemoglobin is slowly trending down but this is a function of hemodilution and third space Patient is about 10 L positive despite diuresis Remains sedated and on every attempt to decrease sedation patient start biting into the endotracheal tube and going wild, sore patient's own protection currently has to remain sedated 12/30/16 Patient has improved overnight with the better PO2 FiO2 gradient requiring less sedation and working little better with the ventilator as far as synchronization of breathing Will gradually decrease propofol / fentanyl Abdomen is soft patient has active bowel sounds and is passing gas and hence we' ll start on enteral feedings With improved AA gradient and diffusion capacity in all likelihood will be able to extubate next 24-48 hours providing no surprises 12/31/16 Patient improving Propofol dose was gradually decreased and at this point switching patient to Precedex in order to attempt extubation the next few days Pain medicine adjusted Patient moves all 4 extremities Bilateral breath sounds ventilatory dependent today tried on CPAP on fairly high settings 8 of PEEP and 20% support which patient is tolerating very well actually Lungs is slowly clearing up patient still has small right upper lobe infiltrate Abdomen is soft no more distention incision is clean and dry 01/01 [id number] ICU delirium ABG shows metabolic alkalosis-secondary due to contraction tolerating CPAP on PEEP 8 HGB 8.3 abdomen-soft patient on precedex-off fentanyl 01/02 failed extubation yesterday wbc 15-increasing abx for + cx cxr improving tolerating tube feeds had BM hgb stable 01/03 wbc 15 range cr 1.4,uo adequat +bm abdomen-soft spo2 93-94% on 60% FIO2 01/04 WBC 12.8 cr-within normal limits Compensated metabolic alkalosis p/F ratio start improving tolerating CPAP on a relatively high levels 01/05/17 Patient stable on the ventilator PO2 FiO2 gradient around 160 Patient simply is the difficult weaned from more standpoints including underlying degree of COPD abdominal surgery splinting as well as lung and chest wall mechanics In addition patient doesn't tolerate sedation vacation very well and is hard to synchronize with the ventilator with limited sedation He was extubated by cylindrical mixer and did well for a while but then had to be reintubated At this point I don't believe we have any other choices but to do a tracheostomy and go from there Objective Vital Signs Date Time Temp Pulse Resp B/P (MAP) Pulse Ox O2 Delivery O2 Flow Rate FiO2 01/05/17 15:45 98 40 01/05/17 14:00 98 01/05/17 12:00 99.3 17 110/54 (72) 01/01/17 14:50 Nasal Cannula 6 Intake and Output 01/05/17 01/05/17 01/06/17 08:00 16:00 00:00 Intake Total 360 ml 350 ml Output Total 1700 ml Balance -1340 ml 350 ml Result Diagram: 01/05/1760901/05/17609 Other Results Laboratory Tests Test 01/05/17 05:30 Blood Gas Puncture Site LT RADIAL Blood Gas Patient Temperature 98.6 Blood Gas HCO3 27 mmol/L (22-26) Blood Gas Base Excess 2.6 mmol/L (-2-2) Blood Gas Oxygen Saturation 92 % (90-100) Arterial Blood pH 7.41 (7.380-7.420) Arterial Blood Partial Pressure CO2 43 mmHg (38-42) Arterial Blood Partial Pressure O2 72 mmHg (61-120) Arterial Blood Oxygen Content 13.8 Vol % (12.0-20.0) Arterial Blood Carboxyhemoglobin 1.1 % (0-4) Arterial Blood Methemoglobin 1.0 % (0-2) Blood Gas Hemoglobin 10.6 G/DL (12.0-16.0) Oxygen Delivery Device VENTILATOR Blood Gas Ventilator Setting SEE COMMENT Blood Gas Inspired Oxygen 45 % 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 Sedated on propofol and fentanyl Hemodynamic/Cardiac Hemodynamically patient is stable Pulmonary/Respiratory Patient stable on the ventilator PO2 FiO2 gradient around 160 Patient simply is the difficult weaned from more standpoints including underlying degree of COPD abdominal surgery splinting as well as lung and chest wall mechanics In addition patient doesn't tolerate sedation vacation very well and is hard to synchronize with the ventilator with limited sedation He was extubated by cylindrical mixer and did well for a while but then had to be reintubated At this point I don't believe we have any other choices but to do a tracheostomy and go from there Abdomen/GI Nutrition Abdomen is soft somewhat distended patient is tolerating enteral feedings Hematologic Slightly anemic and thrombocytopenic in face of splenectomy this is not unusual Assessment and Plan Plan stable overall awake but has ICU delirium-increase seroquel-switch propofol to precedex continue mechnaical ventilation-SBT cr 1. abx adjusted by the cylindrical mixer for + culture keep euvolemic,MAP >70 if continues to have alkalosis may benefit from diamox very likely will trach next week' Attestation For percutaneous [place] tracheostomy tomorrow Critical care 38 minutes After the tracheostomy we'll start weaning the patient down and hopefully liberated from the ventilator next 24-48 Bridgette Mcnally MD Jan 05, 2017 16:17
[2017-01-05] MEDS: MAGNESIUM HYDROXIDE SUSP 30 ML CUP PO SCH (20:08)
[2017-01-05] MEDS ORDERED: RESP: ALBUTEROL 2.5 MG/3 ML NEB (PRN) NEB (20:15)
[2017-01-05] MEDS: RESP: ALBUTEROL 2.5 MG/IPRATROPIUM 0.5 MG NEB (SCH) NEB (20:32)
[2017-01-05] MEDS: REMOVE OLD LIDOCAINE PATCH T-DERMAL SCH (21:00)
[2017-01-06] VITALS (19 sets, daily range): BP systolic 95–145; BP diastolic 48–75; PULSE 68–108; RESP 15–23; TEMP 98.9–101.5; O2SAT 94–100
[2017-01-06] MEDS: fentaNYL DRIP 250 ML IV PRN ×2 (01:56→15:11)
[2017-01-06] MEDS: PROPOFOL 1000 MG/100 ML INJ 100 ML IV PRN ×7 (01:57→23:16)
[2017-01-06] MEDS: RESP: ALBUTEROL 2.5 MG/IPRATROPIUM 0.5 MG NEB (SCH) NEB ×4 (03:01→20:53)
[2017-01-06] MEDS: METOPROLOL TARTRATE 5 MG/5 ML VIAL IV PUSH SCH ×4 (04:00→20:18)
[2017-01-06] MEDS: CHLORHEXIDINE GLUCONATE 2 % 1 PACK (2 CLOTHS) TOP SCH (04:00)
[2017-01-06] MEDS: LACTATED RINGER'S 1000 ML INJ 1,000 ML IV SCH ×2 (04:14→19:07)
--- NOTE | 2017-01-06 05:50 | RADRPT ---
EXAM DATE/TIME: 01/06/2017 04:39 [facility] COMPARISON: CHEST SINGLE AP, January 04, 2017, 4:20. INDICATIONS : Trauma. Rib fractures. MEDICAL HISTORY : Splenic injury. SURGICAL HISTORY : None. ENCOUNTER: Subsequent ACUITY: 1 week PAIN SCORE: Non-responsive. LOCATION: Bilateral chest FINDINGS: Endotracheal tube appears in satisfactory position with tip several centimeters above the cade. Akira ogastric tube descends to the stomach. Left subclavian central catheter is again noted. Hazy bilatera l pleural-parenchymal opacities have increased. Cardiac contours are largely obscured. CONCLUSION: Worsening aeration Davonte Stern MD on January 06, 2017 at 5:47 Board Certified Radiologist. This report was verified electronically.
[2017-01-06 06:00] LABS: BASOPHIL # 0.2 TH/MM3 (0-0.2); BASOPHIL % 1.3 % (0.0-2.0); EOSINOPHIL # 0.8 TH/MM3 (0-0.4); EOSINOPHIL % 5.8 % (0.0-4.0); HEMATOCRIT 25.2 % (39.0-51.0); LYMPH % 15.6 % (9.0-44.0); LYMPHOCYTE # 2.2 TH/MM3 (1.0-4.8); MEAN CELL VOLUME 88.4 FL (80.0-100.0); MEAN CORPUSCULAR HEMOGLOBIN 28.5 PG (27.0-34.0); MEAN CORPUSCULAR HGB CONC 32.2 % (32.0-36.0); MONO % 7.6 % (0.0-8.0); NEUT % 69.7 % (16.0-70.0); PLATELET COUNT 699 TH/MM3 (150-450); RED BLOOD COUNT 2.85 MIL/MM3 (4.50-5.90); RED CELL DISTRIBUTION WIDTH 16.2 % (11.6-17.2); WHITE BLOOD COUNT 14.4 TH/MM3 (4.0-11.0)
[2017-01-06] MEDS: ARTIFICIAL TEARS OPTH SOLN 15 ML BTL EACH EYE SCH ×3 (06:00→20:20)
[2017-01-06] MEDS: hydrALAZINE HCL 10 MG TAB PO SCH ×5 (06:00→23:16)
[2017-01-06] MEDS: MIDAZOLAM HCL 2 MG/2 ML VIAL IV PUSH PRN ×3 (06:11→14:15)
[2017-01-06] MEDS: QUEtiapine FUMARATE 25 MG TAB PO SCH ×3 (06:11→20:19)
[2017-01-06] MEDS: METHOCARBAMOL 500 MG TAB PO SCH ×3 (06:11→20:20)
[2017-01-06 06:20] LABS: HEMO FLAGS AUTO DIFF
[2017-01-06 06:30] LABS: ALT (GPT) 33 U/L (12-78); ANION GAP 8 MEQ/L (5-15); AST (GOT) 40 U/L (15-37); BICARBONATE 24.9 MEQ/L (21.0-32.0); BLOOD UREA NITROGEN 23 MG/DL (7-18); CHLORIDE 106 MEQ/L (98-107); GLOMERULAR FILTRATION RATE 65 ML/MIN (>89); MAGNESIUM 2.5 MG/DL (1.5-2.5); POTASSIUM 4.2 MEQ/L (3.5-5.1); SODIUM (NA) 139 MEQ/L (136-145)
[2017-01-06 06:32] LABS: ALKALINE PHOSPHATASE 79 U/L (45-117); TOTAL BILIRUBIN ADULT 0.3 MG/DL (0.2-1.0)
[2017-01-06 07:08] LABS: OVALOCYTES 1+ (NORMAL); PLATELET ESTIMATE SMEAR HIGH (NORMAL); PLATELET MORPHOLOGY ENLARGED (NORMAL); SCAN/DIFF AUTO DIFF CONFIRMED
[2017-01-06] MEDS: CHLORHEXIDINE 0.12% (ORAL KIT) 15 ML CUP MT SCH ×2 (07:52→20:19)
[2017-01-06] MEDS: Central Line Short Term Adult 7Fr or larger Daily NS Lock Flush IV FLUSH SCH (07:52)
[2017-01-06] MEDS: DOCUSATE SODIUM 50 MG/SENNA 8.6 MG TAB PO SCH ×2 (07:54→20:17)
[2017-01-06] MEDS: FAMOTIDINE 20 MG/2 ML VIAL IV PUSH SCH ×2 (07:54→20:19)
[2017-01-06] MEDS: GABAPENTIN 100 MG CAP PO SCH ×3 (07:54→18:44)
[2017-01-06] MEDS: LEVOFLOXACIN 500 MG TAB PO SCH (07:54)
[2017-01-06] MEDS: BISACODYL 10 MG SUPP RECTAL SCH (07:55)
[2017-01-06] MEDS: LIDOCAINE HCL 5% PATCH T-DERMAL SCH (07:55)
[2017-01-06] MEDS ORDERED: PNEUMOCOCCAL POLYVALENT INJ 25 MCG/0.5 ML SYR IM ONE (09:30)
[2017-01-06] MEDS ORDERED: HAEMOPH B POLYSACCH CONJ VACCINE 0.5 ML VIAL IM ONE (09:30)
[2017-01-06] MEDS ORDERED: MENINGOCOCCAL CONJUGATE VACCINE 0.5 ML VIAL IM ONE (09:30)
[2017-01-06] MEDS: ENOXAPARIN SODIUM 40 MG/0.4 ML SYRINGE SQ SCH ×2 (10:00→14:50)
[2017-01-06] MEDS ORDERED: ROCURONIUM INJ 50 MG/5 ML VIAL IV ONE (11:00)
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
--- NOTE | 2017-01-06 14:26 | PD.PROCEDR ---
Procedure Note Procedure DATE: 01/06/2017 Fiberoptic bronchoscopy INDICATION: Percutaneous tracheostomy placement CONSENT Informed consent for procedure was obtained. DESCRIPTION OF THE PROCEDURE ACV ventilation with saturations at 100%. Patient was bolused with propofol and received rocuronium per Dr. Mcnally. I entered the ET tube with flexible bronchoscopy. ET tube was withdrawn to 17 cm. Visualized rectal insertion of insertion needle into trachea. Adverse place. Puncture. Dilated 3. #8 [facility] history catheter was placed without complication. Surgeon place. Afterwards, evaluation revealed thick mucous plugs. Lavaged with copious saline. No active bleeding. Follow chest x-ray revealed adequate positioning of tracheostomy ESTIMATED BLOOD LOSS: Minimal COMPLICATIONS: No apparent complications. STAT chest x-ray pending at time of dictation Gallo Duval MD Jan 06, 2017 14:26
--- NOTE | 2017-01-06 16:06 | RADRPT ---
EXAM DATE/TIME: 01/06/2017 15:01 [facility] COMPARISON: CHEST SINGLE AP, January 06, 2017, 4:39. INDICATIONS : Post broch. MEDICAL HISTORY : None. SURGICAL HISTORY : None. ENCOUNTER: Initial ACUITY: 2 weeks PAIN SCORE: Non-responsive. LOCATION: Bilateral chest FINDINGS: Endotracheal tube has been removed and replaced with atracheostomy. Significant improvement in aeration seen throughout both lungs especially on the left. There is persistent bilateral effusions and basilar airspace disease. CONCLUSION: 1. Status post conversion of an endotracheal tube to a tracheostomy. 2. Improved aeration following bronchoscopy 3. Persistent bibasilar airspace disease and bilateral pleural effusions. 4. No evidence of pneumothorax. Ziggy Gaspar MD on January 06, 2017 at 16:03 Board Certified Radiologist. This report was verified electronically.
[2017-01-06] MEDS ORDERED: [UNRECOGNIZED DRUG - CODE] IV PUSH (16:54)
[2017-01-06] MEDS ORDERED: LISI10TA3 PO (16:54)
[2017-01-06] MEDS ORDERED: SENN1TAB PO (16:54)
[2017-01-06] MEDS ORDERED: METH500T3 PO (16:54)
[2017-01-06] MEDS ORDERED: ENOX40P SQ (16:54)
[2017-01-06] MEDS ORDERED: IPRASOL NEB (16:54)
[2017-01-06] MEDS ORDERED: HYDR-3798 PO (16:54)
[2017-01-06] MEDS ORDERED: MAGN400S PO (16:54)
[2017-01-06] MEDS ORDERED: CHLO.12%30 MT (16:54)
[2017-01-06] MEDS ORDERED: QUET1TAB7 PO (16:54)
[2017-01-06] MEDS ORDERED: LEVA500T20 PO (16:54)
[2017-01-06] MEDS ORDERED: GABA100C4 PO (16:54)
[2017-01-06] MEDS ORDERED: HYOS0.1231 PO (16:54)
--- NOTE | 2017-01-06 16:56 | HHI.PR ---
Subjective Remarks left hand laceration repair follow up patient is s/p trach continues to run fever Objective Vital Signs Date Time Temp Pulse Resp B/P (MAP) Pulse Ox O2 Delivery O2 Flow Rate FiO2 01/06/17 16:29 97 100 01/06/17 14:00 96 100 01/06/17 14:00 86 01/06/17 12:00 99.0 81 15 110/55 (73) 99 01/06/17 12:00 70 01/06/17 12:00 81 01/06/17 11:59 100 60 01/06/17 10:00 94 01/06/17 08:19 97 60 01/06/17 08:00 68 01/06/17 08:00 70 01/06/17 08:00 99.4 68 15 112/56 (74) 98 01/06/17 06:00 68 01/06/17 04:10 95 70 01/06/17 04:00 98.9 69 15 95/48 (64) 95 01/06/17 04:00 68 01/06/17 04:00 70 01/06/17 02:00 70 01/06/17 01:00 99 70 01/06/17 00:00 69 01/06/17 00:00 70 01/06/17 00:00 99.5 69 15 99/55 (70) 97 01/05/17 22:00 76 01/05/17 20:12 98 70 01/05/17 20:00 83 01/05/17 20:00 70 01/05/17 20:00 99.7 86 15 101/59 (73) 94 01/05/17 18:00 70 I/O 01/05/17 01/05/17 01/05/17 01/06/17 01/06/17 01/06/17 07:00 15:00 23:00 07:00 15:00 23:00 Intake Total 260 ml 100 ml 1476 ml 120 ml 200 ml 1350 ml Output Total 1700 ml 2275 ml 800 ml Balance -1440 ml 100 ml -799 ml -680 ml 200 ml 1350 ml IV Total 200 ml 100 ml 1276 ml 200 ml 1350 ml Tube Feeding 0 ml Other 60 ml 200 ml 120 ml Output Urine Total 1500 ml 2250 ml 800 ml Stool Total 0 ml Gastric Drainage Total 200 ml 25 ml 0 ml # Bowel Movements 0 patient does not respond to oral commands, on trach left hand: laceration site with slight necrotic skin mild surrounding swelling and redness noted no drainage Result Diagram: 01/06/17 0545 01/06/17 0545 Assessment and Plan Assessment and Plan 76 year old male s/p repair of laceration and extensor mechanism left little finger and hand Plan: necrotic skin removed. dressing changed keep the part elevated suture removal in one week time. Barrie Turpin MD Jan 06, 2017 16:56
--- NOTE | 2017-01-06 16:59 | HHI.CCPN ---
Subjective Brief History 76-year-old male-that's post [facility] [place] serial rib fractures, left small pneumothorax , splenic injury grade 3 No head injury Patient was observed first 24 hours and then underwent exploratory laparotomy with splenectomy 24 Hour Review/Hospital Course 12/26 patient stable during night hours with H&H remained stable as well, in the morning hours patient started to become hypotensive his hemoglobin dropped to 9.3, he responded well to 2 L IV fluid and PRBC, however his abdomen became distended and he developed sign of peritonitis, so that I decided to bring the patient emergently to the OR for exploration. 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 During the procedure about a liter of free blood was encountered in the abdomen and spleen was injured obviously way more than it looked on the CAT scan Postoperatively patient is stable He remains on the ventilator Left subclavian triple-lumen placed without difficulty today 12/28/16 No new events through the night however this morning patient bit through the endotracheal tube and had to be emergently reintubated Grateful for emergency specialist rapid reaction Patient doing well now PO2 FiO2 gradient improving Hemoglobin remains stable relative to fluid to dilutional effect Patient is about 10 Liters positive and currently fluid overloaded. We will gently diurese with Bumex and Lasix today and foreseeable future 12/29/16 No change in current status Bilateral good breath sounds small left hemothorax not worth draining considering the risks Abdomen is soft slightly distended NG tube is in place draining clear gastric material Patient hasn't had a bowel movement yet Hemoglobin is slowly trending down but this is a function of hemodilution and third space Patient is about 10 L positive despite diuresis Remains sedated and on every attempt to decrease sedation patient start biting into the endotracheal tube and going wild, sore patient's own protection currently has to remain sedated 12/30/16 Patient has improved overnight with the better PO2 FiO2 gradient requiring less sedation and working little better with the ventilator as far as synchronization of breathing Will gradually decrease propofol / fentanyl Abdomen is soft patient has active bowel sounds and is passing gas and hence we' ll start on enteral feedings With improved AA gradient and diffusion capacity in all likelihood will be able to extubate next 24-48 hours providing no surprises 12/31/16 Patient improving Propofol dose was gradually decreased and at this point switching patient to Precedex in order to attempt extubation the next few days Pain medicine adjusted Patient moves all 4 extremities Bilateral breath sounds ventilatory dependent today tried on CPAP on fairly high settings 8 of PEEP and 20% support which patient is tolerating very well actually Lungs is slowly clearing up patient still has small right upper lobe infiltrate Abdomen is soft no more distention incision is clean and dry 01/01 [id number] ICU delirium ABG shows metabolic alkalosis-secondary due to contraction tolerating CPAP on PEEP 8 HGB 8.3 abdomen-soft patient on precedex-off fentanyl 01/02 failed extubation yesterday wbc 15-increasing abx for + cx cxr improving tolerating tube feeds had BM hgb stable 01/03 wbc 15 range cr 1.4,uo adequat +bm abdomen-soft spo2 93-94% on 60% FIO2 01/04 WBC 12.8 cr-within normal limits Compensated metabolic alkalosis p/F ratio start improving tolerating CPAP on a relatively high levels 01/05/17 Patient stable on the ventilator PO2 FiO2 gradient around 160 Patient simply is the difficult weaned from more standpoints including underlying degree of COPD abdominal surgery splinting as well as lung and chest wall mechanics In addition patient doesn't tolerate sedation vacation very well and is hard to synchronize with the ventilator with limited sedation He was extubated by emergency specialist and did well for a while but then had to be reintubated At this point I don't believe we have any other choices but to do a tracheostomy and go from there 01/06/17 No change in current status Patient has to remain sedated otherwise he is a the synchronizing with the ventilator and simply doesn't follow commands necessary to coordinate breathing Blue Rhino tracheostomy placed today Patient to be transferred to LTAC for further care and separation from the ventilator Objective Vital Signs Date Time Temp Pulse Resp B/P (MAP) Pulse Ox O2 Delivery O2 Flow Rate FiO2 01/06/17 16:29 97 100 01/06/17 14:00 86 01/06/17 12:00 99.0 15 110/55 (73) Intake and Output 01/06/17 01/06/17 01/07/17 08:00 16:00 00:00 Intake Total 220 ml 1450 ml Output Total 800 ml Balance -580 ml 1450 ml Result Diagram: 01/06/17 0545 01/06/17 0545 Imaging Last 24 hours Impressions Chest X-Ray 01/06/17 1500 Signed Impressions: Service Date/Time: Friday, January 06, 2017 15:01 - CONCLUSION: 1. Status post conversion of an endotracheal tube to a tracheostomy. 2. Improved aeration following bronchoscopy 3. Persistent bibasilar airspace disease and bilateral pleural effusions. 4. No evidence of pneumothorax. 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 abx adjusted by the emergency specialist for + culture keep euvolemic,MAP >70 if continues to have alkalosis may benefit from diamox very likely will trach next week' Attestation Critical care 35 minutes Bridgette Mcnally MD Jan 06, 2017 16:58
[2017-01-06] MEDS: MAGNESIUM HYDROXIDE SUSP 30 ML CUP PO SCH (20:17)
[2017-01-06] MEDS: ONDANSETRON HCL 4 MG/2 ML VIAL IV PUSH PRN ×2 (20:42→20:45)
[2017-01-06] MEDS: LORazepam 2 MG/ML VIAL IV PUSH PRN ×2 (20:42→20:45)
--- NOTE | 2017-01-06 22:03 | MP ---
cc: YOVANA ALANIS DATE OF SURGERY 01/06/2017 PREOPERATIVE DIAGNOSIS Respiratory failure trauma status post splenic laceration. POSTOPERATIVE DIAGNOSIS Respiratory failure trauma status post splenic laceration. PROCEDURE Tracheostomy blue rhino SURGEON Dr. Chuck Alanis and comptroller, Dr. Dr. Gallo Duval ANESTHESIA IV propofol and vercuronium ESTIMATED BLOOD LOSS Minimal. PROCEDURE IN DETAIL The patient prepped and draped usual fashion and positioned. A bronchoscope was inserted through the endotracheal tube and the trachea visualized. Area infiltrated Xylocaine. A vertical incision made just above the sternal notch deepened down with a hemostat to the trachea and then Angiocath inserted between second and third tracheal ring. Through the Angiocath, the guidewire was introduced and visualized on bronchoscope. Over the guidewire, the punch dilator and then a large blue rhino dilator were placed. This was followed by placement of the eight Shiley endotracheal cannula which was sutured to skin with 2-0 Prolene, secured with tape around the neck. Once connected to the ventilator, end-tidal CO2 is checked and the patient tolerated the procedure well. Bridgette COLEMAN/ /5:40 PM /9:56 PM
[2017-01-06] MEDS: ACETAMINOPHEN 325 MG TAB PO PRN (22:16)
[2017-01-06] MEDS: REMOVE OLD LIDOCAINE PATCH T-DERMAL SCH (23:18)
[2017-01-07] VITALS (12 sets, daily range): BP systolic 102–129; BP diastolic 50–59; PULSE 74–96; RESP 15; TEMP 99.2–102.7; O2SAT 94–97
[2017-01-07] MEDS: fentaNYL DRIP 250 ML IV PRN ×2 (02:01→11:36)
[2017-01-07] MEDS: METOPROLOL TARTRATE 5 MG/5 ML VIAL IV PUSH SCH ×2 (03:14→09:05)
[2017-01-07] MEDS: CHLORHEXIDINE GLUCONATE 2 % 1 PACK (2 CLOTHS) TOP SCH (03:14)
[2017-01-07] MEDS: ACETAMINOPHEN 325 MG TAB PO PRN (03:33)
[2017-01-07 03:43] LABS: AUTOMATED NEUTROPHIL # 14.2 TH/MM3 (1.8-7.7); BASOPHIL # 0.2 TH/MM3 (0-0.2); BASOPHIL % 1.1 % (0.0-2.0); EOSINOPHIL # 0.7 TH/MM3 (0-0.4); EOSINOPHIL % 3.8 % (0.0-4.0); HEMATOCRIT 26.5 % (39.0-51.0); LYMPH % 9.7 % (9.0-44.0); LYMPHOCYTE # 1.8 TH/MM3 (1.0-4.8); MEAN CELL VOLUME 87.7 FL (80.0-100.0); MEAN CORPUSCULAR HEMOGLOBIN 27.9 PG (27.0-34.0); MEAN CORPUSCULAR HGB CONC 31.8 % (32.0-36.0); MONO % 8.5 % (0.0-8.0); NEUT % 76.9 % (16.0-70.0); PLATELET COUNT 930 TH/MM3 (150-450); RED BLOOD COUNT 3.02 MIL/MM3 (4.50-5.90); RED CELL DISTRIBUTION WIDTH 15.8 % (11.6-17.2); WHITE BLOOD COUNT 18.5 TH/MM3 (4.0-11.0)
[2017-01-07 03:45] LABS: HEMO FLAGS AUTO DIFF
[2017-01-07] MEDS: RESP: ALBUTEROL 2.5 MG/IPRATROPIUM 0.5 MG NEB (SCH) NEB ×2 (04:15→07:43)
[2017-01-07 04:17] LABS: ALT (GPT) 37 U/L (12-78); ANION GAP 9 MEQ/L (5-15); AST (GOT) 33 U/L (15-37); BICARBONATE 23.4 MEQ/L (21.0-32.0); BLOOD UREA NITROGEN 20 MG/DL (7-18); CHLORIDE 103 MEQ/L (98-107); GLOMERULAR FILTRATION RATE 76 ML/MIN (>89); POTASSIUM 4.7 MEQ/L (3.5-5.1); SODIUM (NA) 135 MEQ/L (136-145)
[2017-01-07 04:18] LABS: BANDS 1 % (0-6); CORRECTED NUCLEATED RBC 1 /100 WBC (0-0); EOSINOPHILS 1 % (0-4); MYELOCYTES 1 % (0-0); POLYS (SEG NEUTROPHILS) 79 % (16-70); SCAN/DIFF FINAL DIFF MANUAL; WBC DIFF SAMPLE 100
[2017-01-07 04:19] LABS: ALKALINE PHOSPHATASE 98 U/L (45-117); TOTAL BILIRUBIN ADULT 0.4 MG/DL (0.2-1.0)
[2017-01-07 04:22] LABS: PLATELET ESTIMATE SMEAR HIGH (NORMAL)
[2017-01-07 04:25] LABS: TOXIC GRANULATION 1+ (NORMAL)
[2017-01-07 04:26] LABS: HOWELL-JOLLY BODIES PRESENT (NONE SEEN)
[2017-01-07 04:29] LABS: PLATELET MORPHOLOGY NORMAL (NORMAL)
[2017-01-07 05:46] LABS: BLOOD GAS BASE EXCESS -2.8 mmol/L (-2-2); BLOOD GAS CARBOXYHEMOGLOBIN 1.1 % (0-4); BLOOD GAS HCO3 23 mmol/L (22-26); BLOOD GAS METHEMOGLOBIN 0.7 % (0-2); BLOOD GAS O2 HGB SATURATION 92 % (90-100); BLOOD GAS OXYGEN CONTENT 11.5 Vol % (12.0-20.0); BLOOD GAS PCO2 46 mmHg (38-42); BLOOD GAS PO2 72 mmHg (61-120); BLOOD GAS TOTAL HGB 8.8 G/DL (12.0-16.0); TEMP CORR TO 98.6
[2017-01-07 05:47] LABS: CRITICAL VALUE NO; OXYGEN DEVICE VENTILATOR
[2017-01-07 05:49] LABS: DRAW SITE RT RADIAL; FIO2 50 %; NUMBER OF ARTERIAL PUNCTURES 1; STAT NO; ULNAR PULSE PRESENT; VENT SETTINGS PRVC/AC
[2017-01-07] MEDS: ARTIFICIAL TEARS OPTH SOLN 15 ML BTL EACH EYE SCH ×2 (05:53→14:00)
[2017-01-07] MEDS: METHOCARBAMOL 500 MG TAB PO SCH ×2 (05:53→13:30)
[2017-01-07] MEDS: hydrALAZINE HCL 10 MG TAB PO SCH ×2 (05:53→11:26)
[2017-01-07] MEDS: QUEtiapine FUMARATE 25 MG TAB PO SCH ×2 (05:53→13:29)
[2017-01-07] MEDS: CHLORHEXIDINE 0.12% (ORAL KIT) 15 ML CUP MT SCH (08:00)
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
[2017-01-07] MEDS: Central Line Short Term Adult 7Fr or larger Daily NS Lock Flush IV FLUSH SCH (09:00)
[2017-01-07] MEDS: BISACODYL 10 MG SUPP RECTAL SCH (09:00)
[2017-01-07] MEDS: GABAPENTIN 100 MG CAP PO SCH ×2 (09:04→11:26)
[2017-01-07] MEDS: LEVOFLOXACIN 500 MG TAB PO SCH (09:05)
[2017-01-07] MEDS: FAMOTIDINE 20 MG/2 ML VIAL IV PUSH SCH (09:05)
[2017-01-07] MEDS: ENOXAPARIN SODIUM 40 MG/0.4 ML SYRINGE SQ SCH (09:05)
[2017-01-07] MEDS: DOCUSATE SODIUM 50 MG/SENNA 8.6 MG TAB PO SCH (09:05)
[2017-01-07] MEDS: LIDOCAINE HCL 5% PATCH T-DERMAL SCH (09:06)
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
[2017-01-07] MEDS: PROPOFOL 1000 MG/100 ML INJ 100 ML IV PRN (13:30)
[2017-01-07] MEDS: LACTATED RINGER'S 1000 ML INJ 1,000 ML IV SCH (13:30)
--- NOTE | 2017-01-07 16:10 | HHI.DS ---
[facility] 01/07/17 1610: Discharge Summary Admission Date Dec 25, 2016 at 11:36 Discharge Date: Jan 07, 2017 Admitting Diagnosis splenic laceration. Left rib fracture. Left Pneumothorax Procedures No 8 Shiley percutaneous tracheostomy 01/06 Uli Brief History [facility]. CBC/BMP: 01/07/17 0327 01/07/17 0327 Significant Findings Laboratory Tests Test 01/05/17 05:30 01/05/17 06:10 01/06/17 05:45 01/07/17 03:27 Blood Gas HCO3 27 mmol/L (22-26) Blood Gas Base Excess 2.6 mmol/L (-2-2) Arterial Blood Partial Pressure CO2 43 mmHg (38-42) Blood Gas Hemoglobin 10.6 G/DL (12.0-16.0) White Blood Count 14.5 TH/MM3 (4.0-11.0) 14.4 TH/MM3 (4.0-11.0) 18.5 TH/MM3 (4.0-11.0) Red Blood Count 2.91 MIL/MM3 (4.50-5.90) 2.85 MIL/MM3 (4.50-5.90) 3.02 MIL/MM3 (4.50-5.90) Hemoglobin 8.2 GM/DL (13.0-17.0) 8.1 GM/DL (13.0-17.0) 8.4 GM/DL (13.0-17.0) Hematocrit 25.8 % (39.0-51.0) 25.2 % (39.0-51.0) 26.5 % (39.0-51.0) Mean Corpuscular Hemoglobin Concent 31.8 % (32.0-36.0) 31.8 % (32.0-36.0) Platelet Count 696 TH/MM3 (150-450) 699 TH/MM3 (150-450) 930 TH/MM3 (150-450) Neutrophils (%) (Auto) 70.5 % (16.0-70.0) 76.9 % (16.0-70.0) Eosinophils (%) (Auto) 6.4 % (0.0-4.0) 5.8 % (0.0-4.0) Neutrophils # (Auto) 10.3 TH/MM3 (1.8-7.7) 10.0 TH/MM3 (1.8-7.7) 14.2 TH/MM3 (1.8-7.7) Monocytes # (Auto) 1.2 TH/MM3 (0-0.9) 1.1 TH/MM3 (0-0.9) 1.6 TH/MM3 (0-0.9) Eosinophils # (Auto) 0.9 TH/MM3 (0-0.4) 0.8 TH/MM3 (0-0.4) 0.7 TH/MM3 (0-0.4) Blood Urea Nitrogen 23 MG/DL (7-18) 23 MG/DL (7-18) 20 MG/DL (7-18) Total Protein 6.2 GM/DL (6.4-8.2) 6.1 GM/DL (6.4-8.2) Albumin 2.2 GM/DL (3.4-5.0) 2.2 GM/DL (3.4-5.0) 2.3 GM/DL (3.4-5.0) Estimat Glomerular Filtration Rate 63 ML/MIN (>89) 65 ML/MIN (>89) 76 ML/MIN (>89) Platelet Estimate HIGH (NORMAL) HIGH (NORMAL) Platelet Morphology Comment ENLARGED (NORMAL) Ovalocytes 1+ (NORMAL) Calcium Level 8.3 MG/DL (8.5-10.1) 8.3 MG/DL (8.5-10.1) Aspartate Amino Transf (AST/SGOT) 40 U/L (15-37) Monocytes (%) (Auto) 8.5 % (0.0-8.0) Neutrophils % (Manual) 79 % (16-70) Lymphocytes % 6 % (9-44) Monocytes % 12 % (0-8) Neutrophils # (Manual) 15.0 TH/MM3 (1.8-7.7) Myelocytes 1 % (0-0) Nucleated Red Blood Cells 1 /100 WBC (0-0) Toxic Granulation 1+ (NORMAL) Polychromasia 2.0 % (0.0-1.9) Basophilic Stippling FAINT (NORMAL) Sodium Level 135 MEQ/L (136-145) Test 01/07/17 05:31 Blood Gas Base Excess -2.8 mmol/L (-2-2) Arterial Blood pH 7.31 (7.380-7.420) Arterial Blood Partial Pressure CO2 46 mmHg (38-42) Arterial Blood Oxygen Content 11.5 Vol % (12.0-20.0) Blood Gas Hemoglobin 8.8 G/DL (12.0-16.0) Imaging Last Impressions Chest X-Ray 01/06/17 1500 Signed Impressions: Service Date/Time: Friday, January 06, 2017 15:01 - CONCLUSION: 1. Status post conversion of an endotracheal tube to a tracheostomy. 2. Improved aeration following bronchoscopy 3. Persistent bibasilar airspace disease and bilateral pleural effusions. 4. No evidence of pneumothorax. Ziggy Gaspar MD Abdomen X-Ray 12/26/16 0000 Signed Impressions: Service Date/Time: Monday, December 26, 2016 15:28 - CONCLUSION: 1. New surgical clips and suspected drain in the left upper quadrant. 2. No evidence for foreign body, as above. Rohan Dorantes MD Pelvis X-Ray 12/25/16 1059 Signed Impressions: Service Date/Time: November 10:48 - CONCLUSION: No evidence of fracture. Salvador Branch MD Head CT 12/25/16 1059 Signed Impressions: Service Date/Time: November 11:09 - CONCLUSION: Diffuse atrophy. No acute intracranial findings. Salvador Branch MD Chest CT 12/25/16 1059 Signed Impressions: Service Date/Time: November 11:18 - CONCLUSION: 1. Small left pneumothorax. 2. Multiple acute left-sided rib fractures. 3. Large hiatal hernia. 4. Old right-sided rib fractures. Salvador Branch MD Cervical Spine CT 12/25/16 1059 Signed Impressions: Service Date/Time: November 11:11 - CONCLUSION: No evidence of cervical spine fracture. Extensive postsurgical and degenerative changes. No central canal narrowing. Posterior left second rib fracture noted. Salvador Branch MD Abdomen/Pelvis CT 12/25/16 1059 Signed Impressions: Service Date/Time: November 11:18 - CONCLUSION: 1. Evidence of acute splenic injury with laceration extending 3.8 cm from the capsule superoanteriorly. Findings indicate a grade 2-3 injury. Subcapsular hematoma noted. 2. Multiple left-sided acute rib fractures. Salvador Branch MD Shoulder X-Ray 12/25/16 0000 Signed Impressions: Service Date/Time: November 12:56 - CONCLUSION: No evidence of fracture. Salvador Branch MD Hand X-Ray 12/25/16 0000 Signed Impressions: Service Date/Time: November 13:04 - CONCLUSION: 1. Fracture at the medial base of the small finger proximal phalanx. 2. 3 punctate metallic foreign bodies in the soft tissues or on the skin. Salvador Branch MD PE at Discharge GENERAL: This is a 76-year-old male lying in bed. Mechanically ventilated and sedated SKIN: Warm and dry. HEAD: Atraumatic. Normocephalic. EYES: PERRLA ENT: RIGHT NGT. No nasal bleeding or discharge. Mucous membranes pink and moist. NECK: ORGAN RECOVERY COORDINATOR. Trachea midline. No JVD. CARDIOVASCULAR: Regular rate and rhythm. RESPIRATORY: No accessory muscle use. Lungs are decreased with scattered rhonchi auscultated. Breath sounds equal bilaterally. No distress or dyspnea. GASTROINTESTINAL: BS + x 4 quads. Midline abdominal incision in place with tay. ALTHEA. Soft, and nondistended. MUSCULOSKELETAL: Extremities without cyanosis, or edema. + peripheral pulses x 4 extremities. Warm with good capillary refill and sensation. NEUROLOGICAL: Patient is sedated and mechanically ventilated. Hospital Course [place]: This is a 76-year-old male-that's post [facility] with multiple serial rib fractures, left small pneumothorax , splenic injury grade 3 No head injury Patient was observed first 24 hours and then underwent exploratory laparotomy with splenectomy INJURIES: LEFT eyebrow lac (steri-strip) LEFT PTX (resolved) LEFT rib fxs (3-7) Splenic lac (grade 2-3) LEFT hand lac (w/ tendons exposed) *OLD RIGHT rib fxs, and right clavicle PMHx: HTN Procedures: 12/26: Painful and hypotensive 12/26: Ex-lap. Splenectomy 12/28: ETT exchange due to obstruction 01/01: Extubated 01/01: Reintubated 01/06: TRACH Diet: Vital @ 70 (NGT LCWS) Pulmonary: Vent. Duonebs. (Levsin) Pain: Propofol. Fentanyl. Versed 2mg q 2. Robaxin 500 mg q 8h. Neurontin 200mg TID. Lidoderm patch Behavior: Seroquel 75 mg q 8h. Ativan 1 mg q 8h. Activity: BR. PT and OT ordered. IV: LR @ 60 (total 100 ml) GI: Pepcid IV Bowel: Kiki-colace BID. MOM. Lactulose. Dulcolax AK QD. LBM: 01/04 DVT: SCD's. Lovenox 40 QD Electrolyte replacement HTN: Lopressor 5 mg q 6. Hydralazine 10 q 6, Lisinopril 10 BID. IV ABX: Levaquin po 24 Hour Review/Hospital Course 12/26 patient stable during night hours with H&H remained stable as well, in the morning hours patient started to become hypotensive his hemoglobin dropped to 9.3, he responded well to 2 L IV fluid and PRBC, however his abdomen became distended and he developed sign of peritonitis, so that I decided to bring the patient emergently to the OR for exploration. 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 During the procedure about a liter of free blood was encountered in the abdomen and spleen was injured obviously way more than it looked on the CAT scan Postoperatively patient is stable He remains on the ventilator Left subclavian triple-lumen placed without difficulty today 12/28/16 No new events through the night however this morning patient bit through the endotracheal tube and had to be emergently reintubated Grateful for designer rapid reaction Patient doing well now PO2 FiO2 gradient improving Hemoglobin remains stable relative to fluid to dilutional effect Patient is about 10 Liters positive and currently fluid overloaded. We will gently diurese with Bumex and Lasix today and foreseeable future 12/29/16 No change in current status Bilateral good breath sounds small left hemothorax not worth draining considering the risks Abdomen is soft slightly distended NG tube is in place draining clear gastric material Patient hasn't had a bowel movement yet Hemoglobin is slowly trending down but this is a function of hemodilution and third space Patient is about 10 L positive despite diuresis Remains sedated and on every attempt to decrease sedation patient start biting into the endotracheal tube and going wild, sore patient's own protection currently has to remain sedated 12/30/16 Patient has improved overnight with the better PO2 FiO2 gradient requiring less sedation and working little better with the ventilator as far as synchronization of breathing Will gradually decrease propofol / fentanyl Abdomen is soft patient has active bowel sounds and is passing gas and hence we' ll start on enteral feedings With improved AA gradient and diffusion capacity in all likelihood will be able to extubate next 24-48 hours providing no surprises 12/31/16 Patient improving Propofol dose was gradually decreased and at this point switching patient to Precedex in order to attempt extubation the next few days Pain medicine adjusted Patient moves all 4 extremities Bilateral breath sounds ventilatory dependent today tried on CPAP on fairly high settings 8 of PEEP and 20% support which patient is tolerating very well actually Lungs is slowly clearing up patient still has small right upper lobe infiltrate Abdomen is soft no more distention incision is clean and dry 01/01 [id number] ICU delirium ABG shows metabolic alkalosis-secondary due to contraction tolerating CPAP on PEEP 8 HGB 8.3 abdomen-soft patient on precedex-off fentanyl 01/02 failed extubation yesterday wbc 15-increasing abx for + cx cxr improving tolerating tube feeds had BM hgb stable 01/03 wbc 15 range cr 1.4,uo adequat +bm abdomen-soft spo2 93-94% on 60% FIO2 01/04 WBC 12.8 cr-within normal limits Compensated metabolic alkalosis p/F ratio start improving tolerating CPAP on a relatively high levels 01/05/17 Patient stable on the ventilator PO2 FiO2 gradient around 160 Patient simply is the difficult weaned from more standpoints including underlying degree of COPD abdominal surgery splinting as well as lung and chest wall mechanics In addition patient doesn't tolerate sedation vacation very well and is hard to synchronize with the ventilator with limited sedation He was extubated by designer and did well for a while but then had to be reintubated At this point I don't believe we have any other choices but to do a tracheostomy and go from there 01/06/17 No change in current status Patient has to remain sedated otherwise he is a the synchronizing with the ventilator and simply doesn't follow commands necessary to coordinate breathing Blue Rhino tracheostomy placed today Patient to be transferred to LTAC for further care and separation from the ventilator 01/07 Status post percutaneous tracheostomy yesterday, and also received this postsplenectomy vaccines, he was febrile overnight with some spiking his WBC , but overall clinically is stable tolerating his tube this he has a benign abdominal exam with a clean incision. Will be transferred to [facility] Patient is stable and cleared from a trauma surgery standpoint to transfer to [facility] rehabilitation. Thank you for allowing us to participate in Elvin's care. We wish him the best in his recovery. Pt Condition on Discharge: Stable Discharge Disposition: Rehab Inpatient Discharge Instructions DIET: Follow Instructions for: On Tube Feeding Additional Diet Instructions: Vital at 70 mL/HR Activities you can perform: Regular-No Restrictions Activities to Avoid: Driving for 24 hrs, Concussion Sports, Contact Sports, Lifting/Bending, Prolonged Standing, Strenuous Activity, Driving Danielle Muñiz MD 01/07/17 1653: Discharge Summary CBC/BMP: 01/07/177 01/07/17326 Remarks Patient seen and examined with the nurse practitioner, is a multitrauma patient with splenectomy multiple broken ribs, he is stable received a percutaneous tracheostomy yesterday ,a fever spike last night, I believe is due to the splenic vaccinations given yesterday, he has a benign incision tolerating tube feeds, has been afebrile rest of the day patient will be discharged to [facility] Lisa Anglin Jan 07, 2017 16:10 Danielle Muñiz MD Jan 07, 2017 16:53
== END 2017-01-07 15:00 | DRG 3 ==
LOC: NEPI 10:56 → EDBD 11:36 → NEDA 11:36 → N03A 11:47
PROVIDERS: ADMIT Surgery Trauma Surgery; ATTEND Surgery Trauma Surgery
PROC: 0HQGXZZ Repair Left Hand Skin, External Approach (ICD-10-PCS; 2016-12-25)
PROC: 0DBU0ZZ Excision of Omentum, Open Approach (ICD-10-PCS; 2016-12-26)
PROC: 0WJP0ZZ Inspection of Gastrointestinal Tract, Open Approach (ICD-10-PCS; 2016-12-26)
PROC: 0WJJ0ZZ Inspection of Pelvic Cavity, Open Approach (ICD-10-PCS; 2016-12-26)
PROC: 0WPF0JZ Removal of Synthetic Substitute from Abdominal Wall, Open Approach (ICD-10-PCS; 2016-12-26)
PROC: 30233K1 Transfusion of Nonautologous Frozen Plasma into Peripheral Vein, Percutaneous Approach (ICD-10-PCS; 2016-12-26)
PROC: 30233N1 Transfusion of Nonautologous Red Blood Cells into Peripheral Vein, Percutaneous Approach (ICD-10-PCS; 2016-12-26)
PROC: 30233R1 Transfusion of Nonautologous Platelets into Peripheral Vein, Percutaneous Approach (ICD-10-PCS; 2016-12-26)
PROC: 06HN33Z Insertion of Infusion Device into Left Femoral Vein, Percutaneous Approach (ICD-10-PCS; 2016-12-26)
PROC: 07TP0ZZ Resection of Spleen, Open Approach (ICD-10-PCS; 2016-12-26)
PROC: 5A1955Z Respiratory Ventilation, Greater than 96 Consecutive Hours (ICD-10-PCS; principal; 2016-12-26 13:20)
PROC: 0B21XEZ Change Endotracheal Airway in Trachea, External Approach (ICD-10-PCS; 2016-12-28)
PROC: 0BH17EZ Insertion of Endotracheal Airway into Trachea, Via Natural or Artificial Opening (ICD-10-PCS; 2017-01-01)
PROC: 0B113F4 Bypass Trachea to Cutaneous with Tracheostomy Device, Percutaneous Approach (ICD-10-PCS; 2017-01-06)
PROC: 0BJ08ZZ Inspection of Tracheobronchial Tree, Via Natural or Artificial Opening Endoscopic (ICD-10-PCS; 2017-01-06)
DX: S36.031A Moderate laceration of spleen, initial encounter (principal); N17.9 Acute kidney failure, unspecified; S27.1XXA Traumatic hemothorax, initial encounter; E87.3 Alkalosis; S22.42XA Multiple fractures of ribs, left side, initial encounter for closed fracture; S06.9X9A Unspecified intracranial injury with loss of consciousness of unspecified duration, initial encounter; S36.892A Contusion of other intra-abdominal organs, initial encounter; J96.01 Acute respiratory failure with hypoxia; J96.02 Acute respiratory failure with hypercapnia; Z99.11 Dependence on respirator [ventilator] status; J98.11 Atelectasis; E87.70 Fluid overload, unspecified; I10 Essential (primary) hypertension; V29.49XA Motorcycle driver injured in collision with other motor vehicles in traffic accident, initial encounter; Y92.488 Other paved roadways as the place of occurrence of the external cause; Y93.89 Activity, other specified; S01.112A Laceration without foreign body of left eyelid and periocular area, initial encounter; K44.9 Diaphragmatic hernia without obstruction or gangrene; S61.422A Laceration with foreign body of left hand, initial encounter; Z23 Encounter for immunization; J44.9 Chronic obstructive pulmonary disease, unspecified; E88.09 Other disorders of plasma-protein metabolism, not elsewhere classified; F41.9 Anxiety disorder, unspecified; D75.89 Other specified diseases of blood and blood-forming organs; D64.89 Other specified anemias
CPT/HCPCS: 31500; 36430; 36556; 36600; 70450; 71010; 71260; 72125; 72170; 73030; 73120; 74000; 74177; 76937; 80048; 80053; 81001; 82435; 82565; 82805; 82947; 83735; 84132; 84155; 84295; 84520; 85007; 85014; 85018; 85025; 85027; 85610; 85730; 86850; 86900; 86901; 86920; 86927; 87040; 87070; 87077; 87086; 87186; 87205; 87641; 88305; 88307; 90471; 90472; 90686; 90732; 90734; 93005; 93306; 94002; 94003; 94150; 94640; 94664; 96374; 96375; 99291; G0008; G0009; G0390; J0131; J0360; J0690; J1120; J1170; J1644; J1650; J1940; J2060; J2250; J2370; J2405; J2543; J3010; J3480; J7030; J7050; J7120; L0150; L0172; P9016; P9017; P9035; P9045; P9047; Q2038; Q9967